=== PATIENT | female | born 1970 | race African-American/Black ===

== ENCOUNTER 2019-08-13 11:05 | Inpatient (IN) | payer OTHER ==
[~2019-08-13] VITALS: Ht 167.6 cm; Wt 134.8 kg
[2019-08-13] VITALS (34 sets, daily range): BP systolic 93–172; BP diastolic 60–101
--- NOTE | ~2019-08-13 | HC ---
[facility] [place] [address] CONSULTATION Name: JOSE MCMULLEN Room #: [facility] IN M.R.#: [id number] Admission: 08/13/19 Attend Phys: Breonna Mejia Discharge: Date of : 68 Report #: [id number] THIS REPORT FOR: cc: Mitch Fox Shyam MD Couchonnal, Guillermo J. MD ~ CC: Breonna Becerra DATE OF SERVICE: 08/14/2019 INFECTIOUS DISEASE CONSULTATION HISTORY OF PRESENT ILLNESS: A 49-year-old -[place] woman admitted with cellulitic changes of the left side and high fevers. The patient is treated with vancomycin and meropenem, and today she is improved. More cooperative. PAST MEDICAL HISTORY: Altered mental status. Abscess of the breast. Obesity. Pulmonary embolism. DVTs. Hypertension. Hyperlipidemia. CVA, left hemiparesis. Jennings's palsy years ago. SOCIAL HISTORY: See H and P, old records. REVIEW OF SYSTEMS: The patient is feeling cold. She was febrile; temperature is down with Tylenol. Denies having pain in the left thigh. The patient is hungry and ready for breakfast. PHYSICAL EXAMINATION: GENERAL: Well developed, not toxic looking -[place] woman. VITAL SIGNS: On admission, temperature of 104 degrees Fahrenheit; subsequently after Tylenol and antibiotics, 99.3; pulse 103, respirations 20, BP 139/71. Weight 131 kg, height 5 feet 6 inches. HEENMT: Conjunctival injection, redness in both eyes, left worse than right. Mouth, no thrush. NECK: Supple. LUNGS: Clear. HEART: S1, S2. ABDOMEN: Soft. No masses or megaly. EXTREMITIES: Redness on the medial aspect of the left thigh. PELVIC AND RECTAL: Deferred. NEUROLOGIC: Grossly within normal limits. LABORATORY DATA: O2 saturation normal at room air. Sodium 135, potassium 2.6, CO2 of 31, BUN 7, creatinine 0.8, glucose 292, magnesium 1.3, albumin 2.6 g/dL, protime 12.7, INR 1.2, fibrinogen 532, APTT 32.9. WBC 15,000, hemoglobin 14.[address] [address] CONSULTATION Name: JOSE MCMULLEN Room #: [facility] ADM IN M.R.#: [id number] Admission: 08/13/19 Attend Phys: Breonna Mejia Discharge: Date of : 68 Report #: [id number] g/dL, platelets 207,000. White blood cell count differential revealed 88% segmented neutrophils. Rapid influenza A and B test negative. Valproic acid level 10. Vancomycin level pending. Procalcitonin mildly elevated to 0.67. Urinalysis revealed 1+ protein, 2+ glucose, 1+ blood, many squamous epithelial cells, pyuria, microscopic hematuria, bacteriuria and Trichomonas. MICROBIOLOGY DATA: Blood and urine cultures pending at the time of this dictation. RADIOLOGY EVALUATION: Chest x-ray revealed central venous catheter in the superior vena cava. CT head without contrast revealed development of predominantly subcortical low attenuation within the ____ right frontoparietal region, representing area of ischemic infarction of undetermined age. CT scan of abdomen and pelvis, thickening of the subcutaneous tissue and inguinal region in left thigh. Enlarged lymph nodes, reactive in nature. Fatty infiltration of the liver. MEDICATIONS: The patient is on treatment with vancomycin 1.25 grams IV every 8 hours, meropenem 500 mg IV every 6 hours, insulin lispro per sliding scale. Pressor per protocol; they were already discontinued. ASSESSMENT: 1. Cellulitis, left thigh, possibly due to Streptococcus versus Staphylococcus. 2. Possible diabetes mellitus. 3. Obesity. 4. Electrolyte imbalance. SUGGESTIONS: Recommend continue coverage with vancomycin and meropenem. Streamline antibiotic regimen; the likely cause of these cellulitic changes is either Streptococcus versus Staphylococcus. Dr. Mejia, thank you for requesting my suggestions. By: [phone] Benson Victoria MD /nt
[~2019-08-13 11:05] MED LIST: ACETAMINOPHEN325 M1 PO; AMOXICILLIN 50500 M1 PO; BACTRIM DS TAB1 EACH PO; CELEXA 10 MG TA10 M1 PO; CIPROFLOXACIN500 M1 PO; COLACE 100 MG100 MG PO; CORTISPORIN OTI10 ML OTIC; DOXYCYCLINE 10100 MG PO; FIORICET 50-321 EACH PO; FLAGYL500 MG PO; GEODON PO; GEODON40 MG PO; GEODON80 MG PO; HYDROCODON-ACE1 EAC8 PO; HYDROXINE; HYDROXYZINE; IBUPROFEN 800800 M1 PO; KEFLEX500 MG PO; LOPRESSOR 50 MG50 M1 PO; MEDROL DOSPAK21 TAB PO; MEDROLDOSEPACK PO; NAPROSYN500 MG PO; NORCO 5-325 TA1 EACH PO; NORVASC; NORVASC 5 MG TAB5 MG PO; NORVASC10 MG PO; NYSTATIN 100,0015 G1 TP; PERCOCET 5-3251 EACH PO; PREVACID 30MG C30 M1 PG; PROTONIX40 M2 PO; REGLAN 10 MG TA10 MG PO; REGLAN 5 MG TAB5 M1 PO; SEROQUEL XR50 MG PO; TRAZODONE 150150 M1; TRIAMTERENE-HC1 EAC1 PO
[2019-08-13 12:08] LABS: URINE BILIRUBIN NEGATIVE (Negative); URINE BLOOD 1+ (Negative); URINE CLARITY CLEAR; URINE COLOR YELLOW; URINE GLUCOSE-RANDOM* 2+ (Negative); URINE KETONES NEGATIVE (Negative); URINE NITRITE-REFLEX NEGATIVE (Negative); URINE PROTEIN (DIPSTICK) 1+ (Negative); URINE SPECIFIC GRAVITY 1.015 (1.005-1.035); URINE UROBILINOGEN 0.2 E.U./dl (0.2-1.0)
[2019-08-13 12:13] LABS: URINE LEUKOCYTES-REFLEX 1+ (Negative)
[2019-08-13 12:16] LABS: SQUAMOUS >10 Many /LPF (0-3)
[2019-08-13 12:20] LABS: CASTS None Seen /LPF (None Seen); MUCUS 4-6 Moderate strn/LPF (None Seen); URINE RBC 3-10 Few /HPF (0-2)
[2019-08-13 12:21] LABS: CRYSTALS None Seen /LPF (None Seen)
[2019-08-13 12:45] LABS: ABSOLUTE NEUTROPHILS 14.8 thou/uL (1.4-8.2); BASOPHILS 0.3 % (0.0-2.0); HEMATOCRIT 43.2 % (37.0-47.0); HEMOGLOBIN 14.2 gm/dL (12.0-15.0); LYMPHOCYTES 10.2 % (24.0-44.0); MCH 29.7 pg (26.0-34.0); MCHC 32.8 g/dL (28.0-37.0); MCV 90.7 fL (80.0-100.0); MONOCYTES 4.1 % (1.0-8.0); PLATELET COUNT 237 thou/uL (150-400); POLYS 85.4 % (36.0-66.0); RBC 4.77 mil/uL (4.20-5.00); WBC 17.3 thou/uL (4.0-11.0)
[2019-08-13 13:00] LABS: ALBUMIN 2.6 g/dL (3.4-5.0); CALCIUM 9.3 mg/dL (8.5-10.1); TOTAL BILIRUBIN 0.7 mg/dL (<0.1-1.0); TOTAL PROTEIN 8.4 g/dL (6.4-8.2)
[2019-08-13 13:02] LABS: POTASSIUM 2.8 mmol/L (3.5-5.1)
[2019-08-13] MEDS ORDERED: TYLENOL325 M1 PO (13:45)
[2019-08-13] MEDS ORDERED: CHLORTHALIDONE25 MG PO (13:46)
[2019-08-13] MEDS ORDERED: LIPITOR40 MG PO (13:46)
[2019-08-13] MEDS ORDERED: CARVEDILOL25 MG PO (13:46)
[2019-08-13] MEDS ORDERED: DEPAKOTE 250MG250 M1 PO (13:46)
[2019-08-13] MEDS ORDERED: CLINDAGEL75 ML TOP (13:46)
[2019-08-13] MEDS ORDERED: NEURONTIN 400M400 M2 (13:47)
[2019-08-13] MEDS ORDERED: ELIQUIS5 MG PO (13:47)
--- NOTE | 2019-08-13 16:55 | NUR ---
3 HR SEPSIS UPDATE: NURSE TALKED WITH DR. GRAY AT [address] WARNER (FROM CONSULT) AT 1650. REPORT PT STATUS: PT COOPERATIVE, INTERMITENTLY ANSWERS QUESTIONS, IMPULSIVE MAP- 119 CVP- NO LINE LACTATE-2.4 @1230. AWAITING NEXT DRAW UO:>30ML/HOUR BMP: AWAITING MOST RECENT RESULTS, DIFFICULTY OBTAINING BLOOD WILL GET A LINE ONCE CONSENT IS OBTAINED. PATIENT ON ROOM AIR AT THIS TIME WITH, O2 SATURATION >93% WWILL CONTINUE TO MONITOR PATIENT STATUS.
[2019-08-13 17:04] LABS: CALCIUM 8.6 mg/dL (8.5-10.1); CREATININE 0.8 mg/dL (0.6-1.0); MAGNESIUM 1.3 mg/dL (1.8-2.4)
[2019-08-13 17:05] LABS: APTT 32.9 Seconds (24.5-32.8); INR 1.2; POTASSIUM 3.6 mmol/L (3.5-5.1); PROTIME 12.7 Seconds (9.3-11.4)
--- NOTE | 2019-08-13 17:23 | NUR ---
Received report from Nellie Gilbert RN and assumed care of patient.
--- NOTE | 2019-08-13 17:28 | NUR ---
PATIENT ARRIVED FROM ED AROUND 1450. PATIENT SETTLED INTO BED. BATH GIVEN POST BOWEL MOVEMENT. VITAL SIGNS OBTAINED. SHE IS IMPULSIVE AND PULLS AT LINES. DIFFICULT TO REDIRECT. SEPSIS PROTOCOL IN PLACE. LABS NOTED. ANOTHER RN TO ASSUME CARE OF PATIENT.
--- NOTE | 2019-08-13 17:47 | NUR ---
Attempted to call (contact number listed) to get consent for central line placement. Received a recording that call was screened and it was wrong number. Pt unable to give consent. Call placed to Dr Lerma's cell phone to get consent to do as medical necessity and call placed to Dr Mejia's pager for same reason. Left voicemail message on Dr Lerma's phone and entered return number on Dr Mejia's pager. Currently have two peripheral lines.
--- NOTE | 2019-08-13 19:19 | NUR ---
IV nurse here for placement of central line per medical necessity. Pt restless through the procedure. Tachycardic. Febrile.
--- NOTE | 2019-08-13 20:10 | NUR ---
VAT CONSULTED FOR A CL FOR THIS PT WITH HX OF CVA, DVT AND HAS SEPSIS. A TLCL PLACED IN RT IJ AND TIP AT THE CAJ AND RELEASED FOR USE PER PROTOCOL. PLEASE SEE INSERTION FOR DETAILS
[2019-08-13 21:14] LABS: CREATININE 0.8 mg/dL (0.6-1.0)
[2019-08-13 21:16] LABS: POTASSIUM 2.6 mmol/L (3.5-5.1)
--- NOTE | 2019-08-13 23:16 | NUR ---
ASSUMED PT CARE FROM DAY RN AT 1900. WAS INFORMED ALL CONSULTS WERE CALLED AT THIS TIME. PT JUST HAD A RIGHT SUBCLAVIAN PICC PLACED BY IV TEAM. X RAY CONFIRMED PLACEMENT AND INSULIN, NS, AND LOADING DOSE OF VANC GTT WAS RESTARTED. AT AROUND 2029, CVP LINE WAS PLACED. AROUND 2300, PT PULLED OUT PICC LINE MORE THAN HALF WAY OUT. AT THIS TIME, DRIPS WERE PAUSED. AND THE REST OF THE PICC LINE WAS PULLED OUT BY MARITA KHALIL WITH GAUZE AND TAPE TO DRESS THE SITE.
[2019-08-14] VITALS (47 sets, daily range): BP systolic 120–166; BP diastolic 44–102
--- NOTE | 2019-08-14 00:01 | NUR ---
AT 0 MORRIS CRAMER WAS ON UNIT AND WAS TOLD THAT PT. HAD PULLED OUT PICC LINE. SKIP PITMAN MENTIONED THAT DR. WARNER WAS IN HOUSE AND HE MIGHT BE ABLE TO PLACE CENTRAL LINE. DR. WARNER CAME TO UNIT AND WAS UNAWARE THAT PT. WAS EVEN CONSULTED UNDER HIM. HE WAS THEN GIVEN A PT. UPDATE. AFTER SOME REVIEW HE DECIDED TO NOT PLACE LINE AND SAID THAT IF SHE NEEDED ONE IN THE MORNING THEN HE WOULD PLACE ONE. MORRIS CRAMER CAME BACK ON UNIT TO PLACE IV WITH ULTRASOUND. WILL CONTINUE TO MONITOR.
[2019-08-14 05:47] LABS: ABSOLUTE NEUTROPHILS 13.3 thou/uL (1.4-8.2); BASOPHILS 0.5 % (0.0-2.0); HEMATOCRIT 43.6 % (37.0-47.0); HEMOGLOBIN 14.1 gm/dL (12.0-15.0); LYMPHOCYTES 7.2 % (24.0-44.0); MCH 29.6 pg (26.0-34.0); MCHC 32.4 g/dL (28.0-37.0); MCV 91.5 fL (80.0-100.0); MONOCYTES 3.4 % (1.0-8.0); PLATELET COUNT 207 thou/uL (150-400); POLYS 88.9 % (36.0-66.0); RBC 4.76 mil/uL (4.20-5.00); RDW 14.6 % (10.5-14.5)
[2019-08-14 05:56] LABS: CALCIUM 8.9 mg/dL (8.5-10.1); CREATININE 0.9 mg/dL (0.6-1.0)
[2019-08-14 06:11] LABS: POTASSIUM 2.7 mmol/L (3.5-5.1)
--- NOTE | 2019-08-14 06:50 | NUR ---
SHOAIB CACERES CALLED AT 0200 FOR NEW INSULIN ORDERS. PT. NEEDED NEW ORDERS BECAUSE INSULIN GTT WAS INCOMPATIBLE WITH THE ONLY LINE PT. HAD AT THE TIME. ORDERS WERE RECIEVED TO STOPP INSULIN GTT AND START SUBQ INSULIN Q4H AND REASSESS NEED FOR INSULIN GTT ONCE ANOTHER LINE CAN BE PLACED ON PT. WILL CONTINUE TO MONITOR.
--- NOTE | 2019-08-14 10:48 | NUR ---
Assumed care at 0700. Nurse and 2 shift stacker RNs provided pericare and full bed change due to fecal incontinence episode. Pt appeared alert and correctly stated the year but was not following commands. Nurse attempted to give her PO medication however PT spit the medications back out of her mouth. Pt appeared to gag and cough and vomited up the rest of the medications that were swallowed. Pt denied feelings of nausea after the episode. Nurse attempted to give medications via IV but the line had infiltrated and was dc'd by nurse. IV team was paged as PT had pulled out a PICC line and other peripherals. Nurse crushed the PT's depakote and mixed with applesauce. PT kept refusing to open her mouth. PT educated on medication and importance of it. PT took a few bites but then attempted to spit the medication back out again. Nurse cleaned the PT up and provided more education. High fall risk precautions are in place. Call light in reach. Nurse will continue to monitor.
--- NOTE | 2019-08-14 13:15 | EKG ---
[facility] [place] [address] ELECTROCARDIOGRAM REPORT Name: JOSE MCMULLEN Room #: 237-P ADM IN M.R.#: [id number] Admission: 08/13/19 Attend Phys: Breonna Mejia Discharge: Date of : 68 Report #: [id number] THIS REPORT FOR: cc: Mitch Fox Shyam MD Lundgren, Craig H. 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1970 Requested By: Arnol Trinh Order Number: [id number] MD: Ra Boykin Measurements Intervals [place] Rate: 106 P: 68 OH: 157 QRS: 56 QRSD: 89 T: 30 QT: 336 QTc: 447 Interpretive Statements Sinus tachycardia Probable anteroseptal infarct, old Repol abnrm suggests ischemia, diffuse leads Compared to ECG 12/27/2012 12:01:43 Myocardial infarct finding now present ST (T wave) deviation now present Electronically Signed On 08-14-2019 13:14:18 CDT by Ra Boykin [email or web address] <ELECTRONICALLY SIGNED> By: Ra Boykin MD, FAC 08/14/19 1314 1125 1125 Ra Boykin MD, [facility] /EPI
[2019-08-14 13:39] LABS: MAGNESIUM 1.7 mg/dL (1.8-2.4)
[2019-08-14 13:40] LABS: POTASSIUM 2.3 mmol/L (3.5-5.1)
--- NOTE | 2019-08-14 14:29 | NUR ---
Called report to Chanel RN on . She verbalized understanding. PT is aware of transfer but is unable to understand the meaning due to cognitive status. [facility] was made aware of PT's transfer orders. PT will leave unit via bed and RN escort. Nurse will continue to monitor.
--- NOTE | 2019-08-14 21:05 | NUR ---
report received from Mitch Billings RN. at 1445, pt received in ccu #202 per bed on tele pack monitor. continuing r wrist restraint- remains intact in an attempt to keep peripheral iv's intact. when family in room, pt is talkative and smiling. then when rn in room with or without family presence, pt is immediately quiet and has flat effect. minimally cooperative. iv kcl replacement in progress. antibiotic infusing for cellulitis, adequate urine output per ortiz. flexiseal with scant amount watery stool. incontinent of loose liquid stool with karri colored flecks of stool. cleansed, gown and total bed change performed during shift change. slowly progressing.
[2019-08-15] VITALS: BP 141/89
[2019-08-15 03:29] LABS: ABSOLUTE NEUTROPHILS 9.6 thou/uL (1.4-8.2); BASOPHILS 0.8 % (0.0-2.0); EOSINOPHILS 0.4 % (0.0-3.0); HEMATOCRIT 41.8 % (37.0-47.0); HEMOGLOBIN 13.5 gm/dL (12.0-15.0); LYMPHOCYTES 8.8 % (24.0-44.0); MCH 29.3 pg (26.0-34.0); MCHC 32.3 g/dL (28.0-37.0); MCV 90.8 fL (80.0-100.0); MONOCYTES 7.2 % (1.0-8.0); PLATELET COUNT 204 thou/uL (150-400); POLYS 82.8 % (36.0-66.0); RBC 4.61 mil/uL (4.20-5.00); WBC 11.7 thou/uL (4.0-11.0)
--- NOTE | 2019-08-15 03:48 | NUR ---
NO OVERNIGHT EVENTS. PT. CONTINUES TO BE CONFUSED INTERNITTENTLY. WITH THIS THERE IS STILL A NEED FOR HER TO BE RESTRAINED. PT. HAS BEEN UP MOST OF NIGHT AND HAS SLEPT FOR MAYBE TWO HOURS. ASSESSMENTS AND VITAL SIGNS CHARTED. PT. IS SLOWLY PROGRESSING TOWARDS GOALS. WILL CONTINUE TO MONITOR.
[2019-08-15 04:02] LABS: ALBUMIN 2.2 g/dL (3.4-5.0); CALCIUM 8.8 mg/dL (8.5-10.1); CREATININE 0.7 mg/dL (0.6-1.0)
[2019-08-15 04:08] LABS: POTASSIUM 2.8 mmol/L (3.5-5.1)
[2019-08-15 05:06] VITALS: BP 157/102
[2019-08-15 08:20] VITALS: BP 145/88
[2019-08-15 12:00] VITALS: BP 127/79
--- NOTE | 2019-08-15 12:44 | NUR ---
WOUND CARE CONSULT; ASSESSMENT OF THIS PATIENT WITH OBESITY. THE PATIENT HAS A FECAL AND URINARY MANGEMENT SYSTEMS IN PLACE. THE FECAL TUBE WAS LEAKING STOOL THAT ESCORIATED THE TISSUES. THERE IS A 3 X 3 X 0.1 WOUND TO THE LEFT INNER THIGH. THE WOUND IS CONTAMINATED BUT NO S/S OF INFECTION NOTED. A NEW FECAL MGMT DEVICE WAS INSERTED BY THE FINANCIAL INVESTIGATOR. RECOMMEDNATIONS; 1-INTERDRY TO ALL SKIN FOLDS OF THE BUTTOCKS, BREASTS AND PANNOUS/GROIN. 2-ZGUARD TO THE LEFT INNER THIGHT BID RN PRESENT
--- NOTE | 2019-08-15 14:59 | NUR ---
Met with patient and sp with spouse. Patient a ltc resident of [facility]. She admits with cellulitis rec IV antibiotics. Patient has [place] medicaid. SP with [facility] their face sheet notes only spouse but [facility] has aunt listed as emergency contact. Confirmed with patient and spouse aunt is a noted emergency contact as well. Updated facility. Plan return to [facility] once stable.
--- NOTE | 2019-08-15 17:10 | NUR ---
ASSUMED CARE @ 0700 08/15/19, PT ASSESSMENTS AND VSS COMPLETE PER CCU ORDERS. PT HAD DISCHARGE ORDERS SINCE THE AM, PER DR DELGADO. DIALYSIS PUSHED FARTHER DOWN THE DAY DUE TO AN EMERGENT DIALYSIS IN THE ICU PER DIALYSIS NURSE, DR DELGADO INFORMED ABOUT THIS AND THE POTENTIAL LATE DISCHARGE @ 1419. @ 1634 DIALYSIS STILL NOT STARTED, DIALYSIS NURSE PAGED AGAIN, PT STILL SCHEDULED FOR TODAY BUT CAR WORKER STILL IN THE ICU. DR DELGADO AND CASE MANAGEMENT INFORMED, DISCHARGE ORDER POSTPONED TO TOMMORROW. PT PROGRESSING TOWARDS POC
[2019-08-15 17:16] VITALS: BP 128/90
--- NOTE | 2019-08-15 17:31 | NUR ---
ASSUMED CARE AT 0700, COMMERCIAL DECORATOR AND VITAL SIGNS TAKEN PER CCU PROTOCOL. WOUND NURSE ROUNDED AND TREATED, GAVE RECOMMENDATIONS FOR FUTURE DRESSING CHANGES. RESTRAINTS REMOVED AT 1100 PT WAS CALM AND COOPERATIVE. POTASSIUM REPLACED THROUGHOUT THE DAY. DR. GRAY PAGED AND NOTIFIED OF PT NAUSEA, ORDERS RECEIVED AND EXECUTED.
--- NOTE | 2019-08-15 19:17 | NUR ---
AT 1855 CEFAZOLIN GIVEN PER ORDERS, @ 1900 PT STARTS TO SEIZE, SEIZURE LASTED FOR 2 MINS, CEFAZOLIN TURNED OFF. [place] STOCKER CALLED AND REPORT GIVEN, MEDICATION ADDED TO ALLERGY LIST, NO NEW ORDERS RECIEVED.
[2019-08-15 20:31] VITALS: BP 127/89
[2019-08-16 04:25] VITALS: BP 134/90
--- NOTE | 2019-08-16 04:32 | NUR ---
ASSUMED PT CARE AT 1900. AT THE BEGINNING OF SHIFT CHANGE BEFORE REPORT WAS OBTAINED, FAMILY HAD NOTIFIED THE DAY NURSE ABOUT PT'S STATUS. BOTH NIGHT AND DAY RN WENT IN THE ROOM AND IT WAS NOTICED THAT THE PATIENT WAS HAVING SEIZURE LIKE ACTIVITY WHICH LASTED FOR ABOUT 2 MINUTES. ACCORDING TO DAY NURSE, A NEW MEDICATION (CEFTAZOLIN) WAS JUST STARTED AND A FEW MINUTES LATER PT HAD A REACTION. AFTER THAT EPISODE, PT RETURNED TO BASELINE. SLUBBER RUNNER NOTIFIED AND INFECTIOUS DISEASE PHYSICIAN NOTIFIED. MEDICATION DISCONTINUED PER ID AND ANOTHER ORDERED. PT IS NOW ALERT AND ORIENTED. NO SIGN OF DISTRESS NOTED IN PT. ASSESSMENT COMPLETED AND DOCUMENTED, FECAL MANAGEMENT SYSTEM AND ALVAREZ CATH IN PLACE. VITAL SIGNS STABLE. Q2H TURNS. SCHEDULED MEDS ADMINISTERED TO PT. TOLERATED PO INTAKE. CONTINUE TO MONITOR PATIENT. PAIN MED ADMINISTERED REQUESTED. DENIES ANY FURTHER NEEDS AT THIS TIME.
[2019-08-16 07:48] LABS: MCH 29.4 pg (26.0-34.0); MCHC 32.6 g/dL (28.0-37.0); MCV 90.2 fL (80.0-100.0); RBC 5.11 mil/uL (4.20-5.00); RDW 14.6 % (10.5-14.5)
[2019-08-16 08:05] LABS: CALCIUM 9.2 mg/dL (8.5-10.1); CREATININE 0.9 mg/dL (0.6-1.0)
[2019-08-16 08:06] LABS: POTASSIUM 2.8 mmol/L (3.5-5.1)
[2019-08-16 08:16] VITALS: BP 194/106
[2019-08-16 09:35] VITALS: BP 108/81
[2019-08-16 11:39] VITALS: BP 110/69
[2019-08-16 16:04] VITALS: BP 110/70
--- NOTE | 2019-08-16 18:13 | NUR ---
PT CARE ASSUMED APPROX 0700. ASSESSMENTS CHARTED. DENIES SOA. REPORTS THAT HEADACHE RESOLVED WITH BP CORRECTION EARLIER THIS AM. DENIED PAIN SINCE. K+ REPLACED BUT REMAINED LOW SO ADDITIONAL REPLACEMENT GIVEN. TURNING Q2 HRS WHEN PT ALLOWS. WOUND CARE PER ORDERS. FECAL TUBE DISLODGED SO LEFT OUT AT THIS TIME PER PT REQUEST. MINIMAL OUTPUT THIS SHIFT. ALVAREZ PATENT. PT VERY ATTENTION SEEKING AND EMOTIONAL THIS SHIFT. COUNTRY PRINTER APPRENTICE HAS SPOKEN AT LENGHT WITH PT REGARDING CONCERNS. NO DISTRESS NOTED.
[2019-08-16 19:47] VITALS: BP 107/77
[2019-08-17 00:08] LABS: ESTIMATED AVERAGE GLUCOSE > 398 mg/dL (()); GLYCOHEMOGLOBIN (HGB A1C) > 15.5 % (4.8-5.6)
--- NOTE | 2019-08-17 05:59 | NUR ---
ASSUMED PT CARE AROUND 1900. PT IN BED AND REQUESTING ICE CREAMS ADVISED PT THAT HER BLOOD GLUCOSE NEEDS TO BE CHECKED PRIOR TO RECEIVING. PT WOUND CARE PROVIDED PER ORDERS. PT Q2 TURNS WHEN SHE WANTS TO. PT HAD NO C/O OF SOA OR N/V/D. PT C/O PAIN IN HEAD AND GIVEN PAIN MEDICATION PER AUG. VITALS ARE STABLE. PT IS VERY RESTLESS. WILL CONTINUE TO MONITOR PER PLAN OF CARES.
[2019-08-17 06:52] LABS: CALCIUM 8.8 mg/dL (8.5-10.1)
[2019-08-17 08:20] VITALS: BP 108/88
--- NOTE | 2019-08-17 11:23 | NUR ---
WOUND CARE F/U; THE AREAS TO THE LEFTINNER THIGH IS HEALED. ALL THE AREAS OF ESCORIATION HAVE HEALED. RECOMENDATION; CONTINUE POC. D/C FROM WOUND CARE. RECONSULT IF NEEDED DISCUSSED WITH RN
[2019-08-17 12:00] VITALS: BP 114/71
--- NOTE | 2019-08-17 12:55 | NUR ---
Assess due to high BMI 48=extreme class III obesity. Admit with left thigh cellulitis. Hx cva, DM. Pt sleeping upon visit and did not awaken. Chart reviewed, BG 191-343 and on metformin, ss insulin. Intake 25-75% yesterday. Not on carb restriction for diet order-will add, otherwise low nutrition risk.
--- NOTE | 2019-08-17 14:28 | NUR ---
ASSUMMED PT CARE AT APPROXIMATELY 0700. PT A&O X4. ASSESSMENT CHARTED. FALL PRECAUTIONS IN PLACE. PT DENIES HAVING CHEST PAIN. PT DENIES HAVING SOB. PT DENIES HAVING ACUTE PAIN. VITAL SIGN STABLE. BLOOD SUGARS STABLE. EDUCATED PT ABOUT POC. PT STATED UNDERSTANDING AND DENIED HAVING FURTHER QUESTIONS. BED BATH GIVEN. WOUND CARE GIVEN. PT STATED HER "HEAD FELT FULL." INFORMED DR. MCHUGH. DR. MCHUGH ORDERED NEW MED. MED IMPLEMENTED. PT TRANSFERING TO MED-SURG UNIT. REPORT GIVEN TO RN. RN STATED UNDERSTANDING AND DENIED HAVING FURTHER QUESTIONS. PT'S PERSONAL BELONGINGS SENT C PT. PT COMFORTABLE. PT DENIES HAVING CONCERNS.
[2019-08-17 15:26] VITALS: BP 105/60
[2019-08-17 20:00] VITALS: BP 106/77
--- NOTE | 2019-08-17 21:06 | NUR ---
Received patient from CCU this afternoon, transferred to bed safely. On room air. A+O3-4. Vital signs stable. 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 On carb controlled diet- tolerating well, no nausea, no vomiting and no abdominal pain noted. On blood sugar monitoring, taken and recorded accordingly- with sliding scale insulin prescribed. A/W PT evaluation. With generalized edema noted. With ortiz catheter in place- output measured and recorded accordingly. Able to have a bowel movement today- charted; using bedpan. With wound on her thigh- wound team aware; z guard applied on area, pt turned regularly. Visited by relative. Falls bundle in place. With SL at R UA and R shoulder- intact. Complained of headache, PRN pain meds given as prescribed. To continue monitoring patient. Pt with L sided weakness- assisted in ADLs.
--- NOTE | 2019-08-18 04:02 | NUR ---
PATIENT AOX2 CONFUSED AND FORGETFUL. PATIENT TURNED Q 2 HOURS. PATIENT HAS BLE CELLULITIS, ELEVATED BLE. PATIENT CALLS INAPROPRIATELY, PATIENT EDUCATED TO BE PATIENT D/T HELPING OTHER PATIENTS. PERICARE AND BARRIER CREAM APPLIED NEEDED.PATIENT IN BED ASLEEP AT THIS TIME BREATHING REGULAR AND UNLABOURED.
[2019-08-18 07:49] VITALS: BP 107/64
--- NOTE | 2019-08-18 12:05 | HC ---
[facility] [place] [address] CONSULTATION Name: JOSE MCMULLEN Room #: 460-[facility] IN M.R.#: [id number] Admission: 08/13/19 Attend Phys: Breonna Mejia Discharge: Date of : 68 Report #: [id number] THIS REPORT FOR: cc: Mitch Fox Shyam MD Al-Mubaslat, Ahmad MD ~ CC: Breonna Becerra DATE OF SERVICE: 08/18/2019 ENDOCRINE CONSULTATION NOTE CONSULTING PHYSICIAN: Dr. Pace. REASON FOR CONSULTATION: Type 2 diabetes mellitus, uncontrolled hyperglycemia. HISTORY OF PRESENT ILLNESS: This is a 49-year-old female patient whose medical background is significant for CVA, immobility and bedridden status, thromboembolic disease, and hypertension. The patient presented to our hospital with complaints of abdominal pain and altered mental status and was admitted for further care and monitoring. On presentation, the patient was found to have severe hyperglycemia, which established a new diagnosis of type 2 diabetes mellitus. When I questioned the patient about this diagnosis, it was quite clear that she was very upset about finding out that she is a diabetic and expressed a great deal of concern over this, especially that she noted a devastating family history of type 2 diabetes mellitus and a second-degree relative losing his lower extremities due to diabetes complications. The patient herself has never known that she had hyperglycemia and has had off and on issues with polyuria, thirst, fatigue and tiredness. REVIEW OF SYSTEMS: CONSTITUTIONAL: Fatigue, tiredness. No fever or chills or changes in body weight. HEENT: Negative for sore throat, sinus pain, ear drainage. PULMONARY: Occasional shortness of breath and cough, but not hemoptysis. CARDIAC: Occasional palpitations, chest discomfort, but not syncope. GASTROINTESTINAL: Occasional abdominal discomfort, nausea, but not vomiting. NEUROLOGY: Status post cerebrovascular accident. She is a quadriplegic, cannot ambulate, bed bound. No seizure activity or severe frequent headaches. PSYCHIATRIC: No delusions or hallucinations. UROLOGY: No dysuria or hematuria. Otherwise, review of systems noncontributory other than those mentioned in HPI. ALLERGIES: HYDROCODONE. [address] [address] CONSULTATION Name: JOSE MCMULLEN Room #: 460-[facility] IN M.R.#: [id number] Admission: 08/13/19 Attend Phys: Breonna Mejia Discharge: Date of : 68 Report #: [id number] PAST MEDICAL HISTORY: Noted for: 1. CVA status post left-sided hemiparesis. 2. Pulmonary embolism. 3. Deep venous thrombosis. 4. Hypertension. 5. Hyperlipidemia. 6. Neuropathy. ACTIVE MEDICATIONS: Include amlodipine 10 mg daily, acetaminophen 325 mg daily, atorvastatin 40 mg daily, carvedilol 25 mg b.i.d., chlorthalidone 25 mg daily, Depakote 250 mg b.i.d., Eliquis 5 mg b.i.d., gabapentin 400 mg capsule. PAST SURGICAL HISTORY: Cholecystectomy. FAMILY HISTORY: Noted for type 2 diabetes mellitus. SOCIAL HISTORY: The patient resides in a nursing care facility. She is an active smoker, but denies use of alcohol. PHYSICAL EXAMINATION: GENERAL: -[place] female patient lying in bed, seems comfortable, not in apparent distress. VITAL SIGNS: Blood pressure is 107/64 mmHg, heart rate is 82 beats per minute, respirations 16 per minute, temperature 36.6 degrees. CONSTITUTIONAL: She is lying in bed, appears comfortable, not in apparent pain or distress. HEENT: Anicteric sclerae. Intact extraocular motions. NECK: Supple, no JVD, carotid bruits or lymphadenopathy. I do not appreciate thyromegaly. CHEST: Moderate air entry, scattered rales and rhonchi. No wheeze or crackles. HEART: Regular rate and rhythm without murmurs or gallops. ABDOMEN: Obese, but soft, lax. No guarding. Active bowel sounds. EXTREMITIES: Lower extremity exam noted for trace edema. No skin breaks or ulcerations. NEUROLOGIC: Awake, alert and oriented to time, place and person. The remainder of her examination is noted for left-sided hemiparesis. PSYCHIATRIC: Seems upset about the diagnosis of type 2 diabetes mellitus, but otherwise interactive, and appropriate and able to answer my questions without difficulty. LABORATORY DATA: Blood glucose on arrival was 330 mg/dL and has consistently been over 200 mg/dL, but in the past 24 hours, has gone as low as 132 mg/dL. Otherwise, sodium 133, potassium 3.1, chloride 96, CO2 of 30, anion gap 7, BUN 13, creatinine 1.0, AST 14, total bilirubin 0.7, calcium 8.8, phosphorus 2.0, magnesium 1.8, alkaline phosphatase 59, ALT 14, total protein 8.4, albumin 2.2. [facility] [address] [place] [address] CONSULTATION Name: JOSE MCMULLEN Room #: 460-P ADM IN M.R.#: [id number] Admission: 08/13/19 Attend Phys: Gavinerika Nain Jackie Discharge: Date of : 68 Report #: [id number] EGFR 71. Lactic acid 1.1. Troponin negative. CRP 20.8. White blood count 10, hemoglobin 15, hematocrit 46, platelets 246, hemoglobin A1c is more than 15.5. ASSESSMENT AND PLAN: 1. Type 2 diabetes mellitus. While this is a new diagnosis for the patient, she without a doubt, has type 2 diabetes mellitus as based on her multiple documentations of hyperglycemia as well as her hemoglobin A1c in excess of 15.5 indicating prolonged severe hyperglycemia. The patient was counseled about the diagnosis of type 2 diabetes mellitus as well as the need to achieve and maintain adequate glycemic control so as to prevent diabetic complications. She was reassured that once adequate and sustained glycemic control is in place that such complications might be kept at a minimum. It is notable that the patient had a fairly impressive response to low dose Glucophage therapy, which was started only 2 days ago with her blood glucose values getting as low as 132. That said, I want to maximize this at 1000 mg twice a day, add linagliptin 5 mg daily and tone down her Humalog supplemental scale to low intensity to avoid hypoglycemia. Blood glucose monitoring will commence a.c. and at bedtime and further adjustments will be made accordingly. I believe the patient would benefit from a dietary service consult to advise her unhelpful dietary modifications in the light of this new diagnosis. 2. Hyperlipidemia. The patient has hyperlipidemia and is maintained on atorvastatin therapy. I will resume atorvastatin therapy at 20 mg daily. 3. Hypertension. The patient's level of blood pressure control is adequate on the current regimen, she is to continue with the same. 4. I have reviewed the patient's clinical care notes, laboratory data and other pertinent clinical information for more than 35 minutes. I appreciate this consultation by Dr. Pace. <ELECTRONICALLY SIGNED> By: Katrina Rodriguez MD 08/18/19 [id number] [id number] Katrina Rodriguez MD /nt
--- NOTE | 2019-08-18 13:01 | NUR ---
ASSUMED CARE OF PATIENT AT 0700. PT A&OX4, VSS, DENIES PAIN. PATIENT HAS LEFT-SIDED WEAKNESS, ALVAREZ INTACT. FAMILY AT BEDSIDE. STUDENT NURSE IN TO ASSIST WITH CARES. PT FROM ASSISTED LIVING. NO SIGNS OF DISTRESS. PATIENT WOUND ON LEFT INNER THIGH INTACT, NO REDNESS. REPORT GIVEN APPROX 1100 TO ONCOMING NURSE ON THIS PATIENT.
--- NOTE | 2019-08-18 13:57 | NUR ---
Nutrition: Received RD consult for new diagnosis of DM II. Pt here w/ L leg cellulitis and per latest wound care note, L inner thigh wound has showing all areas of excorciation as healed. Pt noted to be a LTC resident at [facility]. Noted to be a poor historian. Family at bedside. Spent 20-30 mins in introduction to nutrition for diabetes. Pt had great difficulty paying attention. Unsure of pt's mentation and full potential to understand the seriousness of her diabetes and high A1c > 15.5% per 08/15 labs. Family member in room has diabetes too. Explained what type 2 diabetes is, A1c goal, and how carbs impact BG levels. Discussed what foods have carbs and set goal at 30-40 g carbs per meal maximum to support lowering A1c. Unsure pt will change her eating habits on her own, but hopefully [facility] will be in charge of preparing all meals to limit CHO intake. On tradjenta, metformin and SSI with BGs of 132-158 mg/dl so far today. See RD education note for more details. Low risk otherwise as po intake unaffected, eating 70-100% of meals yesterday.
[2019-08-18] MEDS ORDERED: CLARITIN10 M2 PO (14:50)
[2019-08-18] MEDS ORDERED: ZOFRAN 4 MG ORAL4 MG DISSOLVE (14:50)
[2019-08-18] MEDS ORDERED: KEFLEX500 M1 PO (14:50)
[2019-08-18] MEDS ORDERED: NYAMYC15 GM TOP (14:50)
[2019-08-18] MEDS ORDERED: PANTOPRAZOLE SO40 M1 PO (14:50)
[2019-08-18] MEDS ORDERED: TRADJENTA5 MG PO (14:50)
[2019-08-18] MEDS ORDERED: ALDACTONE50 MG PO (14:50)
[2019-08-18] MEDS ORDERED: GLUCOPHAGE1000 MG PO (14:50)
[2019-08-18] MEDS ORDERED: PRINIVIL10 MG PO (14:52)
--- NOTE | 2019-08-18 14:57 | NUR ---
CARE TEAM INDICATED THAT PT MAY BE MEDCIALLY STABELE TO RETURN TO [facility] THIS DAY. AWAITING CLEARENCE FOR ID. CM NOTIFIED LIAISON OR PT'S POSSUBLE RETURN. CM TO FOLLOW INDICATED WITH DC PLANNING.
[2019-08-18] MEDS ORDERED: IMODIUM A-D2 MG PO (15:04)
[2019-08-18] MEDS ORDERED: MUPIROCIN1 GM NASAL (15:13)
[2019-08-18 16:02] VITALS: BP 99/64
--- NOTE | 2019-08-18 16:25 | NUR ---
DISCHARGE PENDING ORDERS ENTERED NURSE INDICATED WE WERE AWAITING A LAB DRAW. CHART COPY MADE. FINAL ORDERS WILL NEED TO BE FAXED TO . REPORT TO BE CALLED TO . SPOUSE WILL NEED TO BE NOTIFIED. CALL JAIRO AT TO ARRANGE TRANSPORT.
[2019-08-18 16:35] LABS: POTASSIUM 3.7 mmol/L (3.5-5.1)
[2019-08-18] MEDS ORDERED: K-DUR 20 MEQ T20 MEQ PO (16:59)
[2019-08-18] MEDS ORDERED: MAGNESIUM400 M1 PO (17:19)
--- NOTE | 2019-08-18 19:46 | NUR ---
pt is A&OX3, PT'S VS ARE STABLE , PT DENIES PAIN AND SOB, PT HAS NEW ORDER TO REPLACE IV MAGNESIUM SULFATE 2GM, RN RECEIVED ORDER TO DC PT TO SNF AT 2000PM, RN HAS GIVING REPORT TO NURSE.
--- NOTE | 2019-08-18 20:43 | NUR ---
pt's ALVAREZ CATHETER HAS REMOVED AT 1500PM, PT HAS VOID URINE 200ML AT 1700PM.
--- NOTE | 2019-08-18 21:30 | NUR ---
discharge pt discharged at 2100 via stretcher to rehab of . iv in right forearm discontinued. pt's belongings in 2 bags that were sent with pt. report to rehab of called by day MARITA [facility]. Pt's discharge instructions, prescriptions reviewed with pt and placed in discharge packet and local driver of transport to give to receiving facility.
== END 2019-08-18 21:00 | DRG 872 ==
LOC: ER 11:05 → EROBS 13:35 → ICU 14:50 → 2N 08-14 14:50 → 4W 08-17 14:38
PROVIDERS: Emergency Medicine; Hospitalist; ADMIT Hospitalist
PROC: 02HV33Z Insertion of Infusion Device into Superior Vena Cava, Percutaneous Approach (ICD-10-PCS; principal; 2019-08-13)
DX: A41.9 Sepsis, unspecified organism (principal); L03.116 Cellulitis of left lower limb; I10 Essential (primary) hypertension; F17.210 Nicotine dependence, cigarettes, uncomplicated; E11.40 Type 2 diabetes mellitus with diabetic neuropathy, unspecified; E66.01 Morbid (severe) obesity due to excess calories; E87.6 Hypokalemia; I69.354 Hemiplegia and hemiparesis following cerebral infarction affecting left non-dominant side; Z68.42 Body mass index [BMI] 45.0-49.9, adult; Z86.711 Personal history of pulmonary embolism; Z86.718 Personal history of other venous thrombosis and embolism; Z90.49 Acquired absence of other specified parts of digestive tract; Z88.6 Allergy status to analgesic agent
CPT/HCPCS: 10040; 10078; 10081; 10797

== ENCOUNTER 2019-09-24 11:17 | Inpatient (IN) | payer OTHER ==
[~2019-09-24] VITALS: Ht 167.6 cm; Wt 137.9 kg
--- NOTE | ~2019-09-24 | HC ---
[facility] [place] [address] CONSULTATION Name: JOSE MCMULLEN Room #: 217-[facility] IN M.R.#: [id number] Admission: 09/24/19 Attend Phys: Mello Serrano MD Discharge: Date of : 68 Report #: [id number] THIS REPORT FOR: cc: Mitch Fox Shyam MD Fried, John S. MD ~ CC: Mello Becerra DATE OF SERVICE: 09/25/2019 CONSULTATION: Infectious Disease. HISTORY OF PRESENT ILLNESS: The patient is a 49-year-old -Welsh female admitted from her snf unit because of fever and confusion. The patient had obvious case of left lower extremity cellulitis. She had been hospitalized 08/12-08/17 with a similar situation presented with fever, confusion and having a left lower extremity cellulitis. During that hospitalization, she had a new diagnosis of diabetes with hemoglobin A1c of 15. Culture was negative. The patient was treated and returned to her skilled nursing. She comes back now almost 5 weeks later with a similar presentation. There is concern about possible COVID-19 infection with fever from the facility. The patient states that she was tested about a week or 2 ago in a facility and was negative. Infectious Disease consultation was requested to assist with evaluation. PAST MEDICAL HISTORY: Significant for recent diagnosis of diabetes with hypertension. The patient has history of deep vein thrombosis and pulmonary embolus. She had a stroke about 9 months ago resulting in left hemiparesis, requiring long-term skilled nursing confinement. She has a history of cerebral aneurysms. There is a history of bipolar disease, morbid obesity with weight of 304 pounds. ALLERGIES: The chart notes allergy to KEFLEX, which causes seizures, which occurred in August. FAMILY HISTORY: Noncontributory. SOCIAL HISTORY: The patient is . She says that her visits from the skilled nursing and they are sexually active. She had a past history of tobacco use, but no alcohol use. The chart notes a history of cocaine use in the past. REVIEW OF SYSTEMS: The patient denies feeling very sick, although she is not terribly reliable. She is not aware of fevers, chills or sweats. She denies [facility] [address] [place] [address] CONSULTATION Name: JOSE MCMULLEN Room #: 217-[facility] IN M.R.#: [id number] Admission: 09/24/19 Attend Phys: Mello Serrano MD Discharge: Date of : 68 Report #: [id number] headache, sinus congestion, sore throat, trouble swallowing. The patient denies any pulmonary symptoms. She specifically denies cough, chest pain, dyspnea. No cardiac complaints. The patient denies nausea, vomiting, diarrhea, constipation. She denies any urinary complaints. She does note pain in her left leg, particularly when it is moved. She has a flaccid paralysis on the left side from her stroke. PHYSICAL EXAMINATION: VITAL SIGNS: The patient presented with a temperature of 103. After 24 hours of vancomycin, temperature was 99.7. SKIN: Shows obvious new and old changes of cellulitis on the left lower extremity. The foot is 2+ edematous. There is erythema on the foot with patchy erythema on the calf and inner thigh. She is tender in the inguinal area. There is some desquamation around the erythema from her previous cellulitis. The leg is flaccid, but has a lot of discomfort with passive motion. ENT: Negative. The patient is alert and conversant. NECK: Supple. HEART: Sounds S1, S2. LUNGS: Clear to anterior auscultation. ABDOMEN: Belly is obese, soft, not tender. EXTREMITIES: The muscular exam shows the flaccidity on the left side. LABORATORY DATA: Showed a white count initially was 27,000 and after 24 hours down to 17.6; hemoglobin is 11.7; hematocrit 35.9; platelets are 288,000. Sedimentation rate is elevated at 90. Electrolytes are normal. BUN 17, creatinine 1.2. LFTs are normal. Highly sensitive CRP is elevated at 499. A chest x-ray is clear without any infiltrates. A Doppler of the leg shows chronic clot in the femoral vein with the common femoral and popliteal veins being open. Urinalysis was positive including Trichomonas. Urine cultures are pending. ASSESSMENT AND PLAN: In summary, we have a patient with fever and confusion with obvious cellulitis of the left leg with leukocytosis. She seems improved very quickly with vancomycin with reduction of fever and white count. She is not complaining of any pulmonary symptoms, has a negative chest x-ray and a report of a negative COVID-19 test in the last week or 2 from her facility. At this time, I would like to continue the patient on vancomycin. She received Flagyl for the Trichomonas. She was started on Bactrim because of the pyuria. She really is asymptomatic, so I do not think this need to be treated. I do not think the urinary tract infection is a cause of her fever and leukocytosis. The leg may benefit from elevation. When the pain is less, the compression garment may be helpful as well. I do not have very high suspicion that this is a pulmonary infection from COVID-19 or any other pathogen. I have taken the liberty of discussing with Dr. Pace to discontinue the COVID-19 PCR test and discontinue COVID-19 isolation. [facility] [address] [place] [address] CONSULTATION Name: BENEDICTJOSE Room #: 217-P ADM IN M.R.#: [id number] Admission: 09/24/19 Attend Phys: Mello Serrano MD Discharge: Date of : 68 Report #: [id number] I appreciate the opportunity of input in the care of the patient. Dr. Collado will return tomorrow for additional followup. By: [id number] Nic Ulrich MD /nt
[~2019-09-24 11:17] MED LIST changes: +ALDACTONE50 MG PO; +CARVEDILOL25 MG PO; +CHLORTHALIDONE25 MG PO; +CLARITIN10 M2 PO; +CLINDAGEL75 ML TOP; +DEPAKOTE 250MG250 M1 PO; +ELIQUIS5 MG PO; +GLUCOPHAGE1000 MG PO; +IMODIUM A-D2 MG PO; +K-DUR 20 MEQ T20 MEQ PO; +KEFLEX500 M1 PO; +LIPITOR40 MG PO; +MAGNESIUM400 M1 PO; +MUPIROCIN1 GM NASAL; +NEURONTIN 400M400 M2; +NYAMYC15 GM TOP; +PANTOPRAZOLE SO40 M1 PO; +PRINIVIL10 MG PO; +TRADJENTA5 MG PO; +TYLENOL325 M1 PO; +ZOFRAN 4 MG ORAL4 MG DISSOLVE
[2019-09-24 11:18] VITALS: BP 124/66
[2019-09-24 12:00] LABS: HEMATOCRIT 35.9 % (37.0-47.0); HEMOGLOBIN 11.7 gm/dL (12.0-15.0); MCH 29.6 pg (26.0-34.0); MCHC 32.5 g/dL (28.0-37.0); MCV 90.9 fL (80.0-100.0); PLATELET COUNT 288 thou/uL (150-400); RBC 3.96 mil/uL (4.20-5.00); WBC 27.4 thou/uL (4.0-11.0)
[2019-09-24 12:09] LABS: CALCIUM 9.1 mg/dL (8.5-10.1); CREATININE 1.2 mg/dL (0.6-1.0); POTASSIUM 4.2 mmol/L (3.5-5.1)
[2019-09-24 12:40] LABS: ABSOLUTE NEUTROPHILS 23.6 thou/uL (1.4-8.2)
[2019-09-24 13:23] VITALS: BP 124/66
[2019-09-24 13:46] VITALS: BP 121/86
[2019-09-24 14:30] VITALS: BP 150/102
[2019-09-24 14:30] LABS: ALBUMIN 2.6 g/dL (3.4-5.0); DIRECT BILIRUBIN 0.2 mg/dL (<0.1-0.2); TOTAL BILIRUBIN 0.7 mg/dL (<0.1-1.0)
[2019-09-24 15:54] LABS: URINE BILIRUBIN NEGATIVE (Negative); URINE BLOOD 1+ (Negative); URINE CLARITY SL CLOUDY; URINE COLOR YELLOW; URINE GLUCOSE-RANDOM* NEGATIVE (Negative); URINE KETONES NEGATIVE (Negative); URINE NITRITE-REFLEX NEGATIVE (Negative); URINE PROTEIN (DIPSTICK) 2+ (Negative)
[2019-09-24 15:57] LABS: URINE LEUKOCYTES-REFLEX 3+ (Negative)
[2019-09-24 16:00] VITALS: BP 112/74
[2019-09-24 16:04] LABS: SQUAMOUS >10 Many /LPF (0-3)
[2019-09-24 16:05] LABS: BACTERIA-REFLEX >30 Many /HPF (None Seen); URINE WBC-REFLEX >25 Many /HPF (0-5)
[2019-09-24 16:06] LABS: CRYSTALS None Seen /LPF (None Seen); URINE RBC 3-10 Few /HPF (0-2)
[2019-09-24 16:07] LABS: CASTS None Seen /LPF (None Seen)
[2019-09-24] MEDS ORDERED: CULTURELLE KID1 EAC1 PO (18:05)
[2019-09-24] MEDS ORDERED: DORYX MPC120 MG PO (18:06)
[2019-09-24] MEDS ORDERED: BENADRYL25 MG PO (18:07)
[2019-09-24] MEDS ORDERED: KRISTALOSE20 GM PO (18:08)
[2019-09-24] MEDS ORDERED: LANTUS SUBQ (18:08)
[2019-09-24] MEDS ORDERED: LIPITOR 40 MG T40 M1 PO (18:09)
[2019-09-24] MEDS ORDERED: HYDRALAZINE 10M10 MG PO (18:09)
--- NOTE | 2019-09-24 19:42 | NUR ---
VSS-FEBRILE @ 99.2. C/O SEVERE LEFT LEG PAIN THAT IS PARTIALLY RELIEVED WITH IV AND PO PAIN MEDICATIONS. LEFT LEG SWOLLEN, SKIN IS TIGHT, AND PEDAL EDEMA IS 4+ AND NON PITTING. ELEVATED LLE TO EASE SWELLING. LEFT SIDED FLACCIDITY. GOOD APPETITE WITH NO REPORTED N/V. [facility] AND RECONCILED HOME MEDICATION LIST, IS READY FOR PHYSICIAN TO REVIEW. TURNED EVERY TWO HOURS FOR COMFORT. FALL PRECAUTIONS IN PLACE.
[2019-09-24 20:30] VITALS: BP 112/73
--- NOTE | 2019-09-25 05:03 | NUR ---
PATIENT ASSESSED AND IS ALERT X 4. SKIN WARM AND DRY. LUNGS DISM TO CLEAR. RESP EVEN AND UNLABORED. TELE- SHOWS ST. DENIES ANY PAIN AT ASSESSMENT TIME. HAS 3+EDEMA IN RIGHT LEG AND LEFT LEG IS ABOUT 4+ EDEMA NON-PITTING. LEFT LEG TENDER AND PAIN WHEN U MOVE IT. FEMALE EXTERNAL CATH PLACED BECAUSE SHE IS INCONT. BM WAS YESTERDAY. REMAINS ON BEDREST. ABLE TO EAT AND DRINK PER SELF. UNABLE TO STAND THOUGH. PT COMPLAINED OF HEADACHE AT 0230. PAIN MED GIVEN WITH GOOD RESULTS. +NO OTHER SKIN ISSUES. LEFT LEG IS WARM TO TOUCH AND VERY REDDISH IN COLOR. TURNED Q 2 HOURS. BUT REFUSED AT THROUGH THE NIGHT AND 4AM. CONT PLAN OF CARE.HAS LEFT SIDE FLACCID FROM STROKE. WATCHING TV AT 0500. DENIES ANY NEEDS.
[2019-09-25 05:43] VITALS: BP 112/72
--- NOTE | 2019-09-25 06:52 | NUR ---
Patient has a open round area under her right armpit. bleeding at times. will have dr look at this.
[2019-09-25 07:47] VITALS: BP 96/55
[2019-09-25 08:42] LABS: ABSOLUTE NEUTROPHILS 14.9 thou/uL (1.4-8.2); BASOPHILS 0.3 % (0.0-2.0); EOSINOPHILS 1.6 % (0.0-3.0); HEMATOCRIT 33.8 % (37.0-47.0); HEMOGLOBIN 11.1 gm/dL (12.0-15.0); LYMPHOCYTES 10.6 % (24.0-44.0); MCH 29.8 pg (26.0-34.0); MCHC 32.8 g/dL (28.0-37.0); MCV 90.9 fL (80.0-100.0); MONOCYTES 2.6 % (1.0-8.0); PLATELET COUNT 239 thou/uL (150-400); POLYS 84.9 % (36.0-66.0); RBC 3.72 mil/uL (4.20-5.00); RDW 15.7 % (10.5-14.5); WBC 17.6 thou/uL (4.0-11.0)
[2019-09-25 08:57] LABS: ALBUMIN 2.4 g/dL (3.4-5.0); CALCIUM 8.6 mg/dL (8.5-10.1); CREATININE 0.9 mg/dL (0.6-1.0); POTASSIUM 3.9 mmol/L (3.5-5.1); TOTAL BILIRUBIN 0.6 mg/dL (<0.1-1.0); TOTAL PROTEIN 7.6 g/dL (6.4-8.2)
[2019-09-25 10:14] LABS: LARGE PLATELETS FEW
[2019-09-25 12:30] VITALS: BP 142/94
--- NOTE | 2019-09-25 19:55 | NUR ---
RECEIVED PT'S CARE AROUND 0720; PT. ALERT; DURING AM ASSESSMENT PT. AOX4; FORGETFUL; NO C/O PAIN; AM MEDICATION GIVEN; C/O OVER LLE WITH TACTILE STIMULATION; NO PAIN AT REST; EDUCATED ABOUT THE IMPORTANCE OF TURNING FROM SIDE TO SIDE; ST. UNDERSTANDING; REFUSED IT IN THE MORNING; RECEIVED CALLED FROM DR. RDZ AROUND 1500 TO TEST PT. FOR COVID 19; NOTIFIED ABOUT THE NEED TO MOVE TO 3W; ST. UNDERSTANDING; CHARGE NURSE & MUSIC COMPOSER NOTIFIED; PT. NOTIFIED; PT. ST. HAVING A COVID TEST OVER A REHAB; RESULTS WERE "NEGATIVE"; PHYSICIAN NOTIFIED; DR. RDZ REQUESTED INFORMATION ABOUT TEST; WHILE CONTACTING REHAB DR. WEATHERS ROUNDING; CANCEL COVID [address] TEST; DR. RDZ NOTIFIED & CALLED TRANSFER TO DR. WEATHERS; CHARGE NURSE & MUSIC COMPOSER NOTIFIED; PT. NOTIFIED; ASSESSMENT CHARGED; FOLLOWING POC; PASSED ON REPORT;
[2019-09-25 20:03] VITALS: BP 125/74
[2019-09-26 04:57] VITALS: BP 143/97
[2019-09-26 05:55] LABS: ABSOLUTE NEUTROPHILS 10.5 thou/uL (1.4-8.2); BASOPHILS 0.2 % (0.0-2.0); EOSINOPHILS 2.4 % (0.0-3.0); HEMATOCRIT 31.2 % (37.0-47.0); HEMOGLOBIN 10.1 gm/dL (12.0-15.0); LYMPHOCYTES 13.9 % (24.0-44.0); MCH 29.3 pg (26.0-34.0); MCHC 32.5 g/dL (28.0-37.0); MONOCYTES 5.2 % (1.0-8.0); PLATELET COUNT 238 thou/uL (150-400); POLYS 78.3 % (36.0-66.0); RBC 3.46 mil/uL (4.20-5.00); RDW 15.8 % (10.5-14.5); WBC 13.4 thou/uL (4.0-11.0)
--- NOTE | 2019-09-26 06:13 | NUR ---
PATIENTS CARES WERE ASSUMED AT SHIFT CHANGE. PATIENT WAS ASSESED AND MEDS WERE PASSED. PATIENT VITALS WERE STABLEDURING THIS CONCRETE PUMP OPERATOR. PATIENT REMAINS AFEBRILE. PATIENTS ACCUE CHACK WAS 103 AT BED TIME PATIENT ASKED FOR A SNACK. SHE WAS GIVEN FOUR PACKS OF CRACKERS AND TWO CONTAINERS OF PEANUT BUTTER. THIS PATIENT HAD ONE EXTRA LARGE STOOL THIS SHIFT. AT APPROX 0500 PATIENT REQUESTED ANOTHER ACCU CHECK. THIS WAS DONE AND SHE WAS 140. THE PATIENT HAD INTERMITTENT COMPLAINTS ABOUT LEG CRAMPS. NURSING WILL PAS THIS TO THE DAY SHIFT FOR THE ROUNDING DOCTOR TO ADDRESS THIS. ROUNDS HOURLY WERE DONE. THE BED IS IN A LOW AND LOCKED POSITION
[2019-09-26 08:00] VITALS: BP 127/78
[2019-09-26 11:09] VITALS: BP 145/86
--- NOTE | 2019-09-26 11:13 | NUR ---
PT CARE ASSUMED AT SHIFT CHANGE. PT ASSESSMENT CHARTED. PT MEDICATION CHARTED. PT TRANSFERRED TO 440, OXYCODONE ADMINISTERED PRIOR TO TRANSFER DUE TO LLE PAIN. NEXT DOSE OF VANCO TRANSFERRED WITH PT. PT TRANSFERRED IN AIR BED. PT COMPLAINS OF LEG CRAMPS.
--- NOTE | 2019-09-26 11:41 | NUR ---
Patient admits with cellulitis/dvt. She is ltc resident of [facility]. She has spouse and aunt who are supportive. Attempted to call patient no answer. Plan return [facility] [place].
--- NOTE | 2019-09-26 16:41 | NUR ---
FAXED CLINICAL UPDATE SPOKE WITH ROLF IN ADM SHE RECEIVED UPDATE. DP TO FOLLOW.
[2019-09-26 19:36] VITALS: BP 130/70
--- NOTE | 2019-09-27 03:29 | NUR ---
PT IS ALERT AND ORIENTED. GETS ANXIOUS AND TEARFUL AT TIMES. EATING OKAY. C/O LLE PAIN FROM THE CELLULITIS.AFEBRILE. CONTINUES ON IV ABTS.CLARENCE MATTRESS.USING FEMALE EXTERNAL CATHETER. NEEDS HELP WITH PERICARE.CALLS APPROPRAITELY.
[2019-09-27 04:51] VITALS: BP 140/84
[2019-09-27 05:31] LABS: HEMATOCRIT 31.9 % (37.0-47.0); HEMOGLOBIN 10.5 gm/dL (12.0-15.0); MCH 29.8 pg (26.0-34.0); MCHC 32.9 g/dL (28.0-37.0); MCV 90.5 fL (80.0-100.0); RBC 3.52 mil/uL (4.20-5.00); RDW 15.8 % (10.5-14.5); WBC 9.2 thou/uL (4.0-11.0)
--- NOTE | 2019-09-27 07:24 | HC ---
[facility] [place] [address] CONSULTATION Name: JOSE MCMULLEN Room #: 440-P ADM IN M.R.#: [id number] Admission: 09/24/19 Attend Phys: Mello Serrano MD Discharge: Date of : 68 Report #: [id number] THIS REPORT FOR: cc: Mitch Fox Shyam MD McKittrick, Richard James MD ~ CC: Arnol Cervantes REQUESTING PHYSICIAN: Mello Serrano MD REASON FOR CONSULTATION: History of left DVT. This appears to be chronic. HISTORY OF PRESENT ILLNESS: The patient is a 49-year-old female who, because of a right-sided stroke and left hemiparesis, has [place] in [place] for about a year. She also has a history, per her, of a DVT occurring with the of her daughter in 1988 and with the of her son in 1990. She is a poor historian, sounds like she may have had a stroke last year, went to [facility], maybe secondary to cocaine. Also, a history reportedly of a PE at a time in the past, unclear. Also, we do have an ultrasound at [place] on 04/23/2010 showing superficial thrombus in the greater saphenous vein. She had a recent ultrasound of the left leg on 09/24/2019 that showed a left femoral vein occlusion that was thought to be a chronic DVT. The popliteal was patent. The patient had been here in the hospital back in August for left leg cellulitis, last several days before this admission, on the , had recurrence of those same symptoms. She was also febrile when she came in here today. She reports that she may have been on hormones in the distant past after her hysterectomy, but none recently. She gets her medicines from the nursing staff in the nursing facility and thinks she has been receiving her Eliquis. PAST MEDICAL HISTORY: Notable for the DVTs in 1988 and 1990 and perhaps other dates that the patient is not aware of. Also, perhaps a history of pulmonary emboli, though records are not clear. We will try to get records from [facility]. The patient also does not know if she has had a hypercoag panel. Also, has hypertension, diabetes type 2 with a hemoglobin A1c of 15 back in August. Also, history of the right CVA with left hemiparesis in summer at [facility], history of morbid obesity and there is also some question in the chart about thoracic and cerebral aneurysms. Also, there is a question of cholecystectomy, hyperlipidemia. There was one mention of bipolar disorder, but I am not sure if that is correct. LABORATORY TESTS: Here are notable for a BUN of ____ and a creatinine of 0.9. [address] [address] CONSULTATION Name: JOSE MCMULLEN Room #: 440-P ADM IN M.R.#: [id number] Admission: 09/24/19 Attend Phys: Mello Serrano MD Discharge: Date of : 68 Report #: [id number] Transaminases normal. Magnesium was 1.0 while back. Albumin 2.4. Coags were normal in August. White count 13.4 down from 27.4, hemoglobin 10.1 with an MCV of 90.0, RDW 15.8, platelets 238. Differential has a few extra neutrophils, no acute changes. Sed rate of 90. Influenza A and B in 08/2019 were negative. UA was notable for 2+ protein, 1+ blood. FAMILY HISTORY: The patient is not aware of any family history of blood clots, strokes, or pulmonary emboli in first or second-degree relatives. Her children are healthy per her. She does have a /SO. SOCIAL HISTORY: Also notable for past tobacco use, past cocaine use. The patient is currently disabled because of stroke. CURRENT MEDICATIONS: At this time include vancomycin 1250 mg q.8 hours IV, lisinopril 10 mg daily, loratadine 10 mg daily, gabapentin 300 mg daily, atorvastatin calcium 40 mg daily, vitamin C 1000 mg daily, pantoprazole 40 mg daily, insulin at various doses, apixaban 5 mg b.i.d., divalproex 250 b.i.d., hydralazine p.r.n., morphine p.r.n., Percocet p.r.n. PHYSICAL EXAMINATION: GENERAL: The patient appears her stated age. She is lying in a hospital bed on a Med/Surg unit. VITAL SIGNS: Height is 5 feet 6, 167.6 cm. Weight is 304 pounds or 137.9 kilograms. Blood pressure is 143/97, O2 sat on room air 96%, respirations 20, pulse 93, had been tachycardic earlier in admit, temperature 98.7. Temperature had been 103 several days ago. MOOD: The patient is alert and pleasant, cheers up a little bit when she talked about the cocaine and the stroke a year ago. She does have very minimal to no left-sided movement. HEENT: Oropharynx clear. LUNGS: Clear, without rhonchi or rales, is symmetric and unlabored. LYMPHATICS: No enlarged lymph nodes in the supraclavicular, cervical, axillary or inguinal region. ABDOMEN: Extremely obese. No definite organomegaly, but it would be very difficult to tell. Left lower leg has swelling and some dark redness consistent with known cellulitis. DISCUSSION: Discussed with the patient that the color ultrasound shows more of a chronic clots. I do not not think she has truly failed Eliquis. Given that we do not know the history, I would continue Eliquis instead of taking on warfarin with all the management issues. We will try to get records from [facility] from the last 5 years with regards to the dictated notes, ultrasounds of the legs and also hypercoag workup. ASSESSMENT AND PLAN: 1. Chronic-appearing deep venous thrombosis without new symptoms. I do not [address] [address] CONSULTATION Name: JOSE MCMULLEN Room #: 440-P ADM IN M.R.#: [id number] Admission: 09/24/19 Attend Phys: Mello Serrano MD Discharge: Date of : 68 Report #: [id number] feel a strong need to change from Eliquis at this time as we do not note that the patient has failed this medication with progression for clot on this medication. We will try to get records, as mentioned above, from [facility]. I have already looked in the [employer] system and not see any records regarding this, but I may take a look again. 2. Cellulitis. Continuous antibiotics. 3. Diabetes. Continuous dietary and medication management. 4. Hypertension. Meds per others. 5. Morbid obesity. Encouraged calorie restriction. 6. Hemiparesis. Defer to nurses and other therapists treatment of this. We will follow with you. <ELECTRONICALLY SIGNED> By: Dk Mota MD 09/27/19 0724 [id number] Dk Mota MD /nt
[2019-09-27 07:39] VITALS: BP 120/70
--- NOTE | 2019-09-27 08:19 | NUR ---
High BMI 49.1. Hx CVA, DM, HTN. Admit from correction with left leg cellulitis. Was dx DM last month, A1C 15.5. Now BG very well controlled. Appetite is fair to good 50-80%. No new wt changes. Received introduction to diabetic diet last admit. Low nutrition risk
--- NOTE | 2019-09-27 15:28 | NUR ---
ASSUMED CARE OF THE PT AT 0700. PT IS INCONTINENT. BS CONTROLLED BY INSULIN, SEE EMAR. PLACED EXTERNAL CATHETER TO HELP PT VOID. APPLIED LOTION TO PTS LEGS PER PT REQUEST. PT REFUSED Q2 TURNS IN THE AM. R AC IV DRY AND INTACT. NO C/O PAIN. FALL PRECAUTIONS IN PLACE, BED IN THE LOWEST POSITION AND CALL LIGHT IS WITHIN REACH. WILL CONTINUE TO MONITOR THE PT
--- NOTE | 2019-09-27 15:54 | NUR ---
CARE TEAM INDICATED ANTICIPATED DC BACK TO [facility] TOMORROW. LIAISON UPDATED. CM TO FOLLOW INDICATED WITH DC PLANNING.
[2019-09-27 16:52] VITALS: BP 110/74
[2019-09-27 19:45] VITALS: BP 146/86
[2019-09-28 03:20] VITALS: BP 142/92
[2019-09-28 07:37] VITALS: BP 158/106
[2019-09-28] MEDS ORDERED: DORYX MPC120 MG PO (08:12)
--- NOTE | 2019-09-28 09:48 | NUR ---
RECIEVED CARE OF THIS PATIENT AT 1900. PATIENT ALERT AND ORIENTED AND VERY DEMANDING. WANTS THINGS NOW. C/O PAIN, WHEN TOLD IT WOULD BE AWHILE FOR PAIN DUE SHE WANTED TYLENOL. HAD NO TYLENOL ORDERED. CALLED [facility] AND RECEIVED AN ORDER FOR TYLENOL. WHEN COULD TO INTO PATIENT AND PATIENT SAID SHE JUST WANTED TO WAIT UNTIL HER PAIN MED WAS DUE. PATIENT IS INCONT AND HAS SOME BREAKDOWN ON HER BOTTOM. BARRIER CREAM APPLIED. LEFT SIDE OF PATIENT VERY WEAK. PATIENT SLEPT LITTLE.
[2019-09-28] MEDS ORDERED: ZYVOX600 MG PO (14:49)
[2019-09-28] MEDS ORDERED: LINEZOLID600 MG PO (14:50)
--- NOTE | 2019-09-28 15:12 | NUR ---
CARE TEAM INDICATED THAT PT IS MEDICALLY STABLE TO DISCHARGE TO [facility] THIS DAY. PT AND SPOUSE ARE AWARE AND AGREEABLE. CHART COPY ORDERED. ORDERS FAXED. [facility]SP[facility] ARRANGED FOR [phone]. REPORT TO BE CALLED TO . NO OTHER CM INTERVENTION INDICATED. CASE CLOSED.
--- NOTE | 2019-09-28 15:32 | NUR ---
PT DISCHARGING TODAY TO [facility] FAXED DC ORDERS/SUMMARY TO FACILITY SPOKE WITH ROLF IN ADM SHE RECEIVED ORDERS AND ARRANGED TRANSPORT BY [facility] ([facility]) FOR [phone]. PT WILL NOTIFY FAMILY. UNIT NOTIFIED AND CHART COPY PER US. RN TO CALL REPORT TO [phone].
[2019-09-28 15:42] VITALS: BP 144/73
--- NOTE | 2019-09-28 17:04 | NUR ---
VSS-AFEBRILE. LUNGS CLEAR IN ALL JEWELL BILATERALLY. DISCUSSED DISCHARGE PLAN WITH PATIENT, SHE VEERBALIZED UNDERSTANDING. BATH GIVEN. IV REMOVED. TRANSPORTATION SERVICE WITH CART PRESENT FOR TRANSFER. LEFT UNIT WITH TRANSPORTATION STAFF AND ALL PERSONAL BELONGINGS.
== END 2019-09-28 16:30 | disposition short-term general hospital (02) | DRG 871 ==
LOC: ER 11:17 → 2N 13:56 → EROBS 13:56 → 2N 14:18 → 4S 09-26 11:34
PROVIDERS: Emergency Medicine; Hospitalist; Internal Medicine; Internal Medicine Infectious Disease; ADMIT Internal Medicine
DX: A41.9 Sepsis, unspecified organism (principal); N17.0 Acute kidney failure with tubular necrosis; L03.116 Cellulitis of left lower limb; N39.0 Urinary tract infection, site not specified; I82.512 Chronic embolism and thrombosis of left femoral vein; I69.354 Hemiplegia and hemiparesis following cerebral infarction affecting left non-dominant side; Z68.42 Body mass index [BMI] 45.0-49.9, adult; I10 Essential (primary) hypertension; E78.5 Hyperlipidemia, unspecified; G47.00 Insomnia, unspecified; F31.9 Bipolar disorder, unspecified; Z20.828 Contact with and (suspected) exposure to other viral communicable diseases; E66.01 Morbid (severe) obesity due to excess calories; E11.40 Type 2 diabetes mellitus with diabetic neuropathy, unspecified; Z87.891 Personal history of nicotine dependence; A59.01 Trichomonal vulvovaginitis; Z82.49 Family history of ischemic heart disease and other diseases of the circulatory system; Z88.6 Allergy status to analgesic agent; Z86.711 Personal history of pulmonary embolism; Z90.49 Acquired absence of other specified parts of digestive tract; Z88.8 Allergy status to other drugs, medicaments and biological substances
CPT/HCPCS: 10081; 10102

== ENCOUNTER 2019-12-17 10:19 | Emergency (ER) | payer OTHER ==
[~2019-12-17] VITALS: Ht 167.6 cm; Wt 126.5 kg
--- NOTE | ~2019-12-17 | EMS ---
[facility] [address] [place] [address] EMS Patient Care Report Name: JOSE MCMULLEN Room #: REG DEEPTHI Carpio#: [id number] Admission: 12/17/19 Attend Phys: Discharge: Date of : 68 Report #: [id number] THIS REPORT FOR: //name// Report Transmitted: 12/17/2019 12:00 EMS Care Summary [place], [place]/[facility] Incident [id number] @ 12/17/2019 09:35 Incident Location [address] Patient JOSE PFEIFFER Female, 49 Years 1970 Patient Address [id number] [place], [place] [id number] Patient History Hypertension (HTN),Stroke/CVA,Hyperlipidemia,Neurological Condition - Other,Abdominal Aortic Aneurysm,Neuropathy, Patient Allergies No known allergies, Patient Medications Atorvastatin, Tramadol, Lisinopril, Zofran, Metformin, Gabapentin, Doxycycline, Chief Complaint twitching in left arm and face Disposition Transported No Lights/[place] Dispatch Reason Stroke/CVA Transported To [facility] Narrative Initially dispatched with P[facility] 45 for a stroke. Upon EMS arrival staff met crew at the door, stating that they would take the stretcher, load the patient, [facility] [address] [place] [address] EMS Patient Care Report Name: JOSE MCMULLEN Room #: REG DEEPTHI Carpio#: [id number] Admission: 12/17/19 Attend Phys: Discharge: Date of : 68 Report #: [id number] and return them to crew. Patient was brought out on the stretcher, showing no obvious signs of distress, CAOx4. Crew asked staff for report and they stated "she (the patient) can tell you" and walked back inside. Patient reports having very little movement on her left side due to a previous stroke. She stated this morning she had some twitching in her left arm/hand and face. Patient stated that she thought maybe she had a seizure. She reports remaining conscious throughout the incident. Patient stated that she was feeling better now but wished to be evaluated. She was loaded into the ambulance. Patient was transported to [facility] without incident. Full report was given to RN prior to signing this document. Initial Vitals @10:09P: 106,R: 20,BP: 109/88,GCS: 15,CO: 0,SpO2: 95,Revised Trauma: 12, @10:02P: 96,R: 20,BP: 174/95,Pain: 0/10,GCS: 15,Glucose: 97,SpO2: 97,Revised Trauma: 12, Assessments @10:00MENTAL:No Abnormalities,SKIN:No Abnormalities,HEENT:Head/Face: No Abnormalities,Eyes: No Abnormalities,Neck/Airway: No Abnormalities,LUNG SOUNDS:ABDOMEN:PELVIS//GI:EXTREMITIES:Left Arm: No Abnormalities,Right Arm: No Abnormalities,Left Leg: No Abnormalities,Right Leg: No Abnormalities,PULSE:NEURO:Weakness Left-Sided, Impression Acute Pain, not elsewhere classified Procedures @10:00ALS AssessmentResponse: UnchangedSucceeded Timeline 09:33,Call Received 09:33,Dispatch Notified 09:35,Dispatched 09:36,En Route 09:44,On Scene 10:00,At Patient 10:00,ALS Assessment,Response: UnchangedSucceeded, 10:02,BP: 174/95 M,PULSE: 96,RR: 20 R,SPO2: 97 Ox,ETCO2: ,B,PAIN: 0,GCS: 15, 10:04,Depart Scene 10:09,BP: 109/88 M,PULSE: 106,RR: 20 R,SPO2: 95 Ox,ETCO2: ,BG: ,PAIN: ,GCS: 15, 10:13,At Destination 10:25,Call Closed Disclaimer v1.1 Copyright 2020 [employer] [address] [address] EMS Patient Care Report Name: JOSE MCMULLEN Room #: REG DEEPTHI Carpio#: [id number] Admission: 12/17/19 Attend Phys: Discharge: Date of : 68 Report #: [id number] This EMS Care Summary contains data elements from the applicable legal record (which may be displayed differently). It is designed to provide pertinent information for the following purposes: continuity of care, clinical quality, and state data reporting. The complete legal record is available to ED staff and administrators of the receiving hospital in [employer] Patient Tracker. All data is provided "as is."
--- NOTE | ~2019-12-17 | EMS ---
[address] [address] EMS Patient Care Report Name: JOSE MCMULLEN Room #: REG DEEPTHI Carpio#: [id number] Admission: 12/17/19 Attend Phys: Discharge: Date of : 68 Report #: [id number] THIS REPORT FOR: //name// Report Transmitted: 12/17/2019 11:22 EMS Care Summary [place], [place]/[facility] Incident [id number] @ 12/17/2019 09:35 Incident Location [address] Patient JOSE PFEIFFER Female, 49 Years 1970 Patient Address [id number] [place], [place] [id number] Patient History Hypertension (HTN),Stroke/CVA,Hyperlipidemia,Neurological Condition - Other,Abdominal Aortic Aneurysm,Neuropathy, Patient Allergies No known allergies, Patient Medications Atorvastatin, Tramadol, Lisinopril, Zofran, Metformin, Gabapentin, Doxycycline, Chief Complaint twitching in left arm and face Disposition Transported No Lights/[place] Dispatch Reason Stroke/CVA Transported To [facility] Narrative Initially dispatched with Pumper 45 for a stroke. Upon EMS arrival staff met crew at the door, stating that they would take the stretcher, load the patient, [facility] [address] [place] [address] EMS Patient Care Report Name: JOSE MCMULLEN Room #: REG DEEPTHI Carpio#: [id number] Admission: 12/17/19 Attend Phys: Discharge: Date of : 68 Report #: [id number] and return them to crew. Patient was brought out on the stretcher, showing no obvious signs of distress, CAOx4. Crew asked staff for report and they stated "she (the patient) can tell you" and walked back inside. Patient reports having very little movement on her left side due to a previous stroke. She stated this morning she had some twitching in her left arm/hand and face. Patient stated that she thought maybe she had a seizure. She reports remaining conscious throughout the incident. Patient stated that she was feeling better now but wished to be evaluated. She was loaded into the ambulance. Patient was transported to [facility] without incident. Full report was given to RN prior to signing this document. Initial Vitals @10:09P: 106,R: 20,BP: 109/88,GCS: 15,CO: 0,SpO2: 95,Revised Trauma: 12, @10:02P: 96,R: 20,BP: 174/95,Pain: 0/10,GCS: 15,Glucose: 97,SpO2: 97,Revised Trauma: 12, Assessments @10:00MENTAL:No Abnormalities,SKIN:No Abnormalities,HEENT:Head/Face: No Abnormalities,Eyes: No Abnormalities,Neck/Airway: No Abnormalities,LUNG SOUNDS:ABDOMEN:PELVIS//GI:EXTREMITIES:Left Arm: No Abnormalities,Right Arm: No Abnormalities,Left Leg: No Abnormalities,Right Leg: No Abnormalities,PULSE:NEURO:Weakness Left-Sided, Impression Acute Pain, not elsewhere classified Procedures @10:00ALS AssessmentResponse: UnchangedSucceeded Timeline 09:33,Call Received 09:33,Dispatch Notified 09:35,Dispatched 09:36,En Route 09:44,On Scene 10:00,At Patient 10:00,ALS Assessment,Response: UnchangedSucceeded, 10:02,BP: 174/95 M,PULSE: 96,RR: 20 R,SPO2: 97 Ox,ETCO2: ,B,PAIN: 0,GCS: 15, 10:04,Depart Scene 10:09,BP: 109/88 M,PULSE: 106,RR: 20 R,SPO2: 95 Ox,ETCO2: ,BG: ,PAIN: ,GCS: 15, 10:13,At Destination 10:25,Call Closed Disclaimer v1.1 Copyright 2020 [employer] [address] [address] EMS Patient Care Report Name: JOSE MCMULLEN Room #: REG DEEPTHI Carpio#: [id number] Admission: 12/17/19 Attend Phys: Discharge: Date of : 68 Report #: [id number] This EMS Care Summary contains data elements from the applicable legal record (which may be displayed differently). It is designed to provide pertinent information for the following purposes: continuity of care, clinical quality, and state data reporting. The complete legal record is available to ED staff and administrators of the receiving hospital in [employer] Patient Tracker. All data is provided "as is."
[~2019-12-17 10:19] MED LIST changes: +BENADRYL25 MG PO; +CULTURELLE KID1 EAC1 PO; +DORYX MPC120 MG PO; +HYDRALAZINE 10M10 MG PO; +KRISTALOSE20 GM PO; +LANTUS SUBQ; +LINEZOLID600 MG PO; +LIPITOR 40 MG T40 M1 PO; +ZYVOX600 MG PO
[2019-12-17 11:04] LABS: ABSOLUTE NEUTROPHILS 5.5 thou/uL (1.4-8.2); EOSINOPHILS 4.2 % (0.0-3.0); HEMATOCRIT 38.8 % (37.0-47.0); HEMOGLOBIN 12.6 gm/dL (12.0-15.0); LYMPHOCYTES 22.7 % (24.0-44.0); MCH 28.4 pg (26.0-34.0); MCHC 32.4 g/dL (28.0-37.0); MCV 87.5 fL (80.0-100.0); MONOCYTES 6.8 % (1.0-8.0); PLATELET COUNT 272 thou/uL (150-400); POLYS 65.3 % (36.0-66.0); RBC 4.43 mil/uL (4.20-5.00); RDW 16.7 % (10.5-14.5); WBC 8.4 thou/uL (4.0-11.0)
[2019-12-17 11:23] LABS: CALCIUM 9.1 mg/dL (8.5-10.1); CREATININE 0.8 mg/dL (0.6-1.0); POTASSIUM 3.3 mmol/L (3.5-5.1)
[2019-12-17 11:30] LABS: ALBUMIN 3.1 g/dL (3.4-5.0); MAGNESIUM 1.1 mg/dL (1.8-2.4); TOTAL BILIRUBIN 0.3 mg/dL (0.2-1.0); TOTAL PROTEIN 8.9 g/dL (6.4-8.2)
[2019-12-17] MEDS ORDERED: COLACE100 MG PO (12:13)
[2019-12-17 14:00] VITALS: BP 135/82
== END 2019-12-17 14:00 ==
LOC: ER 10:19
PROVIDERS: Emergency Medicine
DX: G40.909 Epilepsy, unspecified, not intractable, without status epilepticus (principal); E83.42 Hypomagnesemia; G25.2 Other specified forms of tremor; I10 Essential (primary) hypertension; E78.5 Hyperlipidemia, unspecified; F17.210 Nicotine dependence, cigarettes, uncomplicated; Z79.899 Other long term (current) drug therapy; Z88.8 Allergy status to other drugs, medicaments and biological substances

== ENCOUNTER 2020-02-16 19:10 | Emergency (ER) | payer OTHER ==
[~2020-02-16] VITALS: Ht 160 cm; Wt 146.1 kg
--- NOTE | ~2020-02-16 | EMS ---
[facility] [address] [place] [address] EMS Patient Care Report Name: JOSE MCMULLEN Room #: REG DEEPTHI Carpio#: [id number] Admission: 02/16/20 Attend Phys: Discharge: Date of : 68 Report #: [id number] THIS REPORT FOR: //name// Report Transmitted: 02/16/2020 19:21 EMS Care Summary [facility] Incident [id number] @ 02/16/2020 18:17 Incident Location [address] [place] [address] Patient JOSE MCMULLEN-PFEIFFER Female, 49 Years 1970 Patient Address [address] [place] [address] Patient History Hypertension (HTN),Stroke/CVA,Morbid Obesity,Edema,Chronic Kidney Disease,Type 2 Diabetes,Cellulitis, Patient Allergies Hydrocodone, Patient Medications Unknown, Chief Complaint "She had a seizure." Disposition Transported No Lights/[place] Dispatch Reason Unconscious/Fainting Transported To [facility] Narrative History: Pt reports she was resting in bed watching TV when she suddenly felt a [facility] [address] [place] [address] EMS Patient Care Report Name: JOSE MCMULLEN Room #: REG DEEPTHI Carpio#: [id number] Admission: 02/16/20 Attend Phys: Discharge: Date of : 68 Report #: [id number] "cramping" sensation in her L hand. Pt reports that she subsequently "passed out" and woke up surrounded by facility staff members. Pt complained of feeling tired. Staff reports the pt experienced convulsion activity isolated to her L hand, followed by full-body convulsions lasting approximately 1-2 minutes. Staff denies any postictal period occurring. Pt reports she has a history of stroke with left-sided deficits from that stroke. Pt denies any recent illness, chest pain, shortness of breath, N/V/D, or headache. No other complaints noted at this time. Assessment: Pt was found in semi-barr's position in bed in the company of facility staff. Pt ABCs intact. Pt A&Ox4. Pt did not appear to be in any acute distress. See assessment tab for detailed physical exam findings and pertinent negatives. Treatment: Primary. VS. HPI. PMH. Physical exam. Pt moved via lateral sheet drag to EMS stretcher and secured in semi-barr's position. Pt moved via stretcher to ambulance. Pt placed on induction heating equipment setter. Transport: En route, continue with on-going assessment. Pt VS and condition remained stable throughout transport. Biocom to [place] ED. Destination: Pt was brought via stretcher to ED room 10. Pt moved via sheet drag to hospital bed. Report to attending RN. Patient signed. Care transferred. Initial Vitals @18:53P: 99,BP: 155/85,SpO2: 95,OH Suspected: false @PTAGlucose: 126, @18:30P: 101,R: 18,BP: 180/123,Pain: 0/10,GCS: 15,SpO2: 95,Revised Trauma: 12, Assessments @18:29MENTAL:Time Oriented,Person Oriented,Event Oriented,Place Oriented,SKIN:HEENT:Head/Face: Facial Droop,Neck/Airway: No Abnormalities,LUNG SOUNDS:Left Upper: No Abnormalities,Right Upper: No Abnormalities,Left Lower: No Abnormalities,Right Lower: No Abnormalities,ABDOMEN:Left Upper: No Abnormalities,Right Upper: No Abnormalities,Left Lower: No Abnormalities,Right Lower: No Abnormalities,PELVIS//GI:EXTREMITIES:Left Arm: Paralysis,Left Arm: Abnormal Sensation,Left Leg: Edema,Left Leg: Paralysis,Left Leg: Abnormal Sensation,Left Leg: Weakness,Left Arm: Weakness,Right Arm: No Abnormalities,Right Leg: No Abnormalities,PULSE:NEURO:Seizures,Facial Droop, Impression Syncope / Fainting Procedures @18:29ALS AssessmentResponse: [facility] [address] [place] [address] EMS Patient Care Report Name: JOSE MCMULLEN Room #: REG Dev.Hansel#: [id number] Admission: 02/16/20 Attend Phys: Discharge: Date of : 68 Report #: [id number] Timeline RACKING TECHNICIAN,BP: / M,PULSE: ,RR: R,SPO2: Ox,ETCO2: ,B,PAIN: ,GCS: , 18:14,Call Received 18:14,Psap Call 18:17,Dispatched 18:17,En Route 18:25,On Scene 18:28,At Patient 18:29,ALS Assessment,Response: UnchangedSucceeded, 18:30,BP: 180/123 M,PULSE: 101,RR: 18 R,SPO2: 95 Ox,ETCO2: ,BG: ,PAIN: 0,GCS: 15, 18:53,BP: 155/85 M,PULSE: 99,RR: R,SPO2: 95 Ox,ETCO2: ,BG: ,PAIN: ,GCS: , 18:54,Depart Scene 19:03,At Destination 19:31,Call Closed Disclaimer v1.1 Copyright 2020 [facility] This EMS Care Summary contains data elements from the applicable legal record (which may be displayed differently). It is designed to provide pertinent information for the following purposes: continuity of care, clinical quality, and state data reporting. The complete legal record is available to ED staff and administrators of the receiving hospital in [employer] Patient Tracker. All data is provided "as is."
[~2020-02-16 19:10] MED LIST changes: +COLACE100 MG PO
[2020-02-16 20:51] LABS: ABSOLUTE NEUTROPHILS 6.6 thou/uL (1.4-8.2); BASOPHILS 0.7 % (0.0-2.0); EOSINOPHILS 3.4 % (0.0-3.0); HEMATOCRIT 37.7 % (37.0-47.0); HEMOGLOBIN 12.4 gm/dL (12.0-15.0); LYMPHOCYTES 19.4 % (24.0-44.0); MCV 84.9 fL (80.0-100.0); MONOCYTES 6.9 % (1.0-8.0); PLATELET COUNT 257 thou/uL (150-400); POLYS 69.6 % (36.0-66.0); RBC 4.44 mil/uL (4.20-5.00); RDW 17.8 % (10.5-14.5); WBC 9.5 thou/uL (4.0-11.0)
[2020-02-16 20:59] LABS: ANION GAP 7 mmol/L (7-16); BUN 8 mg/dL (7-18); CALCIUM 9.1 mg/dL (8.5-10.1); CHLORIDE 102 mmol/L (98-107); CO2 31 mmol/L (21-32); CREATININE 0.9 mg/dL (0.6-1.0); GLUCOSE 107 mg/dL (74-106); POTASSIUM 3.9 mmol/L (3.5-5.1); SODIUM 140 mmol/L (136-145)
[2020-02-16 21:05] LABS: ALBUMIN 3.4 g/dL (3.4-5.0); DIRECT BILIRUBIN < 0.1 mg/dL (<0.1-0.2); SGOT 16 U/L (15-37); SGPT 26 U/L (30-65); TOTAL BILIRUBIN 0.4 mg/dL (0.2-1.0); TOTAL PROTEIN 9.3 g/dL (6.4-8.2)
[2020-02-16 21:24] LABS: AMP/METHAMP Negative (Negative); BARBITURATES Negative (Negative); BENZODIAZEPINES Negative (Negative); COCAINE Negative (Negative); METHADONE Negative (Negative); OPIATES POSITIVE (Negative); PCP Negative (Negative)
[2020-02-16 22:35] VITALS: BP 177/111
== END 2020-02-17 00:35 | disposition home or self-care (01) ==
LOC: ER 19:10
PROVIDERS: Emergency Medicine
DX: R56.9 Unspecified convulsions (principal); I10 Essential (primary) hypertension; F31.9 Bipolar disorder, unspecified; E78.5 Hyperlipidemia, unspecified; G62.9 Polyneuropathy, unspecified; F17.210 Nicotine dependence, cigarettes, uncomplicated; Z86.73 Personal history of transient ischemic attack (TIA), and cerebral infarction without residual deficits; Z86.711 Personal history of pulmonary embolism; Z86.718 Personal history of other venous thrombosis and embolism; Z79.899 Other long term (current) drug therapy; Z88.8 Allergy status to other drugs, medicaments and biological substances; Z88.6 Allergy status to analgesic agent

== ENCOUNTER 2020-04-30 19:36 | Inpatient (IN) | payer MEDICAID ==
[~2020-04-30] VITALS: Ht 162.6 cm; Wt 155.2 kg
--- NOTE | ~2020-04-30 | EMS ---
[address] [address] EMS Patient Care Report Name: JOSE MCMULLEN Room #: REG DEEPTHI Carpio#: [id number] Admission: 04/30/20 Attend Phys: Discharge: Date of : 68 Report #: [id number] THIS REPORT FOR: //name// Report Transmitted: 04/30/2020 21:12 EMS Care Summary [facility] Incident [id number] @ 04/30/2020 18:23 Incident Location [address] [place] [address] Patient JOSE MCMULLEN-PFEIFFER Female, 50 Years 1970 Patient Address [address] [place] [address] Patient History Hypertension (HTN),Stroke/CVA,Morbid Obesity,Bipolar II Disorder,Headache,Novel Coronavirus (COVID-19), Patient Allergies No known allergies, Patient Medications Claritin, Gabapentin, Melatonin, Lexapro, Hydrochlorothiazide (Hctz), Diphenhydramine, Januvia, Ibuprofen, Atorvastatin, Eliquis, Hydralazine, Colace, Lisinopril, Clonidine, Ventolin, Tramadol, Metformin, Protonix, Quetiapine, Oxycodone, Ondansetron, Chief Complaint Fever. Disposition Transported No Lights/[place] Dispatch Reason Sick Person Transported To [address] [address] EMS Patient Care Report Name: JOSE MCMULLEN Room #: REG [facility]#: [id number] Admission: 04/30/20 Attend Phys: Discharge: Date of : 68 Report #: [id number] Narrative [id number] arrived to find the pt sitting semi-barr in bed, in a group home facility room, in the presence of [facility] personnel and facility staff. [id number] noted that the pt was alert and interactive, and not experiencing any obvious anxiety, distress, or life threat. [id number] reported that facility staff reported to them an elevated Calcium level and wanted the pt seen at the hospital for a sepsis rule out. Facility staff reported that the pt had been experiencing a fever "around 101-102" yesterday that was successfully treated with Tylenol. Facility staff reported that the pt had been tested for COVID yesterday and it came back negative. Facility staff reported that the pt had COVID in March, but that the pt had no s/s of cough, shortness of breath, or chest pain. The pt reported that she was feeling tired and denied all other medical symptoms. The pt's condition remained stable and unchanged dur Initial Vitals @19:08P: 96,R: 16,BP: 118/56,Pain: 0/10,GCS: 15,Temp: 98.2F,SpO2: 98,Revised Trauma: 12,SD Suspected: false Assessments @18:50MENTAL:No Abnormalities,SKIN:Hot,HEENT:Head/Face: No Abnormalities,LUNG SOUNDS:General: No Abnormalities,ABDOMEN:General: No Abnormalities,PELVIS//GI:EXTREMITIES:PULSE:NEURO:No Abnormalities, Impression Fever Procedures @PTASurgical Mask on PatientResponse: Unchanged Timeline NYLON OPERATOR,Surgical Mask on Patient,Response: Unchanged 18:04,Call Received 18:04,Psap Call 18:23,Dispatched 18:25,En Route 18:37,On Scene 18:46,At Patient 19:08,BP: 118/56 M,PULSE: 96,RR: 16 R,SPO2: 98 Ox,ETCO2: ,BG: ,PAIN: 0,GCS: 15, 19:11,Depart Scene 19:29,At Destination 19:53,Call Closed [facility] [address] [place] [address] EMS Patient Care Report Name: JOSE MCMULLEN Room #: REG [facility].#: [id number] Admission: 04/30/20 Attend Phys: Discharge: Date of : 68 Report #: [id number] Disclaimer v1.1 Copyright 2020 [employer] This EMS Care Summary contains data elements from the applicable legal record (which may be displayed differently). It is designed to provide pertinent information for the following purposes: continuity of care, clinical quality, and state data reporting. The complete legal record is available to ED staff and administrators of the receiving hospital in [employer]'s Patient Tracker. All data is provided "as is."
[2020-04-30 19:41] VITALS: BP 119/53
[2020-04-30 21:09] LABS: ABSOLUTE NEUTROPHILS 10.9 thou/uL (1.4-8.2); BASOPHILS 0.9 % (0.0-2.0); EOSINOPHILS 0.6 % (0.0-3.0); HEMATOCRIT 38.3 % (37.0-47.0); HEMOGLOBIN 12.2 gm/dL (12.0-15.0); LYMPHOCYTES 16.1 % (24.0-44.0); MCH 28.2 pg (26.0-34.0); MCHC 31.9 g/dL (28.0-37.0); MCV 88.5 fL (80.0-100.0); MONOCYTES 5.5 % (1.0-8.0); PLATELET COUNT 247 thou/uL (150-400); POLYS 76.9 % (36.0-66.0); RBC 4.33 mil/uL (4.20-5.00); RDW 16.4 % (10.5-14.5); WBC 14.2 thou/uL (4.0-11.0)
[2020-04-30 21:10] LABS: CALCIUM 8.5 mg/dL (8.5-10.1); CREATININE 1.1 mg/dL (0.6-1.0); POTASSIUM 4.1 mmol/L (3.5-5.1)
[2020-04-30 21:17] LABS: ALBUMIN 2.6 g/dL (3.4-5.0); TOTAL BILIRUBIN 0.5 mg/dL (0.2-1.0); TOTAL PROTEIN 8.4 g/dL (6.4-8.2)
[2020-04-30 21:32] LABS: URINE BILIRUBIN NEGATIVE (Negative); URINE BLOOD 1+ (Negative); URINE CLARITY CLEAR; URINE COLOR YELLOW; URINE GLUCOSE-RANDOM* NEGATIVE (Negative); URINE KETONES NEGATIVE (Negative); URINE LEUKOCYTES-REFLEX TRACE (Negative); URINE NITRITE-REFLEX NEGATIVE (Negative); URINE PROTEIN (DIPSTICK) NEGATIVE (Negative); URINE SPECIFIC GRAVITY 1.025 (1.005-1.035); URINE UROBILINOGEN 0.2 E.U./dl (0.2-1.0)
[2020-04-30 21:47] LABS: SQUAMOUS 0-3 Few /LPF (0-3)
[2020-04-30 21:48] LABS: CASTS None Seen /LPF (None Seen); CRYSTALS None Seen /LPF (None Seen); URINE WBC-REFLEX 0-5 Rare /HPF (0-5)
[2020-04-30 21:49] LABS: BACTERIA-REFLEX 1-9 Few /HPF (None Seen); URINE RBC 3-10 Few /HPF (0-2)
--- NOTE | 2020-04-30 22:56 | NUR ---
PT MOVED FROM SOUTH SIDE TO ER ROOM 8
[2020-04-30] MEDS ORDERED: CEFTRIAXONE40 MG/M1 IM (23:36)
[2020-04-30] MEDS ORDERED: ALPRAZOLAM 0.50.5 M1 PO (23:38)
[2020-04-30] MEDS ORDERED: CLONIDINE HCL0.1 MG PO (23:39)
[2020-04-30] MEDS ORDERED: PROTONIX40 M2 PO (23:40)
[2020-04-30] MEDS ORDERED: LANTUS SOL100 UNIT/1 SUBQ (23:41)
[2020-04-30] MEDS ORDERED: CONSTULOSE10 GM/152 (23:42)
[2020-04-30] MEDS ORDERED: QUETIAPINE FUMA25 MG PO (23:43)
[2020-04-30] MEDS ORDERED: TORSEMIDE10 MG PO (23:44)
[2020-04-30] MEDS ORDERED: TRAMADOL 50 MG50 MG PO (23:44)
[2020-04-30] MEDS ORDERED: NYAMYC15 GM TOP (23:46)
[2020-04-30] MEDS ORDERED: OXYBUTYNIN 5 MG5 M2 PO (23:47)
[2020-04-30] MEDS ORDERED: HYDROCHLOROTH12.5 M2 PO (23:50)
[2020-04-30] MEDS ORDERED: NEURONTIN 400400 M1 PO (23:50)
[2020-04-30] MEDS ORDERED: MELATONIN5 MG PO (23:52)
[2020-04-30] MEDS ORDERED: NOVOLIN N100 UNIT/1 (23:54)
[2020-05-01] VITALS (8 sets, daily range): BP systolic 110–137; BP diastolic 62–88
--- NOTE | 2020-05-01 01:13 | NUR ---
HAND OFF TOOL SENT TO [facility] AT THIS TIME
[2020-05-01] MEDS ORDERED: NOVOLOG100 UNIT/1 SUBQ (05:30)
[2020-05-01 05:43] LABS: HEMATOCRIT 35.2 % (37.0-47.0); HEMOGLOBIN 11.3 gm/dL (12.0-15.0); MCH 28.5 pg (26.0-34.0); MCHC 32.1 g/dL (28.0-37.0); MCV 88.7 fL (80.0-100.0); RBC 3.97 mil/uL (4.20-5.00); RDW 16.3 % (10.5-14.5); WBC 12.1 thou/uL (4.0-11.0)
[2020-05-01 05:48] LABS: CALCIUM 8.4 mg/dL (8.5-10.1); CREATININE 1.1 mg/dL (0.6-1.0); POTASSIUM 3.3 mmol/L (3.5-5.1)
--- NOTE | 2020-05-01 07:27 | NUR ---
ER ADMIT. SEEN BY MORRIS THOMSON,HOSPITALIST AT BEDSIDE. ALL HOME MEDS RESUMED. VSS. NO S/S ACUTE DISTRESS NOTED OR REPORTED AT THIS TIME. CARE TRANSFERRED TO AM RN AT THIS TIME.
--- NOTE | 2020-05-01 15:17 | NUR ---
PT CARE ASSUMED AT 0700, PT ALERT AND ORIENTED X4, DENIES ANY CHEST PAIN, NAUSEA AND VOMITTING.PT COMPALINS OF GENERALIZED BODY PAIN. LEFT SIDED WEAKNESS DUE TO PREVIOUS CVA. PT IS ON 3L OF OXYGEN, NO SIGNS OF DISTRESS NOTED. FALL PRECAUTIONS IN PLACE. WILL CONTINUE TO MONITOR.
--- NOTE | 2020-05-01 15:38 | NUR ---
INITIAL ASSESSMENT: Received consult. MARIO reviewed chart and spoke with nursing and attending physician. Pt was admitted from [facility] due to pneumonia. Pt placed in Enhanced Isolation due to COVID-19. Pt with low grade fever and is requiring 2L of O2. Pt is on IV abx. ID consulted. Pt with hx of CVA with left sided weakness. MARIO placed call to pt's room. No answer. MAROI spoke with pt's , Phillip, via phone. Introduced role of SW. Pt's states that pt is in intermediate care and moved to [facility] when Centers closed last year. Plan is for pt to return to [facility] when medically stable. Pt may be ready for discharge tomorrow. MARIO faxed clinical info to the facility and spoke with liaison, Alice, who confirms they are able to accept pt back. Pt has [place] Medicaid. Info updated as pt was showing to be patient pay. MARIO is following to assist as needed with discharge planning.
--- NOTE | 2020-05-01 22:44 | NUR ---
PT RESTING IN BED WATCHING TV AND TALKING ON PHONE. PT HAS FEMALE EXT CATH, IV ANTIBIOTICS. LUNGS DIMINISHED. BS DECREASED, BLE EDEMA, L FOOT VERY SWOLLEN. L SIDE HEMIPARESIS. PT USES [employer] INTAKE TECHNICIAN TO USE BED CONTROLS. PT PROVIDED HS MEDS AND SNACK. PRN PROVIDED FOR C/O R HAND AND L FOOT PAIN. PT REPORTS PLAN ON DC IN AM.
[2020-05-02 03:35] VITALS: BP 116/66
[2020-05-02 05:47] LABS: ALBUMIN 2.2 g/dL (3.4-5.0); CALCIUM 8.2 mg/dL (8.5-10.1); POTASSIUM 3.4 mmol/L (3.5-5.1); TOTAL BILIRUBIN 0.3 mg/dL (0.2-1.0); TOTAL PROTEIN 7.1 g/dL (6.4-8.2)
[2020-05-02 06:05] LABS: ABSOLUTE NEUTROPHILS 4.6 thou/uL (1.4-8.2); BASOPHILS 0.2 % (0.0-2.0); EOSINOPHILS 4.1 % (0.0-3.0); HEMATOCRIT 34.5 % (37.0-47.0); HEMOGLOBIN 11.6 gm/dL (12.0-15.0); LYMPHOCYTES 22.5 % (24.0-44.0); MCH 29.9 pg (26.0-34.0); MCHC 33.6 g/dL (28.0-37.0); MCV 89.2 fL (80.0-100.0); MONOCYTES 8.7 % (1.0-8.0); PLATELET COUNT 196 thou/uL (150-400); POLYS 64.5 % (36.0-66.0); RBC 3.87 mil/uL (4.20-5.00); RDW 16.4 % (10.5-14.5); WBC 7.1 thou/uL (4.0-11.0)
--- NOTE | 2020-05-02 07:35 | NUR ---
LEFT MESSAGE ON DR OTT NUMBER TO REPORT BLOOD CULTURE RESULTS. AWAITING CALL BACK.
[2020-05-02 08:45] VITALS: BP 154/129
--- NOTE | 2020-05-02 10:10 | NUR ---
PATIENT ATE BREAKFAST WITH SET UP TOOK AM MEDS. IV FLUIDS INFUSING ORDERED.
--- NOTE | 2020-05-02 11:08 | NUR ---
DR LIMA HERE TO SEE PATIENT WANTS MIDLINE IV PLACE ORDER AND IV TEAM CALLED.
[2020-05-02 11:53] VITALS: BP 124/83
--- NOTE | 2020-05-02 14:40 | NUR ---
DR COOK HERE AND GAVE ORDER TO CONTINUE VANCO IV ORDERED. VANCO TROUGH WAS 11.
--- NOTE | 2020-05-02 15:00 | NUR ---
VAT CONSULTED FOR MIDLINE PLACEMENT. 4FR ML PLACED TO RIGHT UPPER CEPHALIC, TRIMMED AT 13CM, OCM EXTERNAL. PT TOLERATED WELL.
--- NOTE | 2020-05-02 15:38 | NUR ---
MARIO reviewed chart and spoke with nursing and attending physician. Pt remains in Enhanced Isolation due to COVID-19. Pt is afebrile and on 2L of O2. Pt is on IV abx. Awaiting cultures at this time. Pt may need to have a midline placed if IV abx are needed for discharge. Pt may be ready for discharge back to [facility] in 1-2 day. MARIO provided update to Alice at [facility], who confirms they are able to accept pt back when she is medically stable. Staff to contact the facility and ask for the post-acute unit to assist with coordination of discharge. MARIO spoke with pt's via phone to provide update and notify of discharge plan. Pt's spouse is aware and agreeable [facility] discharge plan. Finalized discharge orders/summary to be faxed to the facility when available. Chart will need to be copied. Pt's to be notified of discharge. MARIO is following and is available to assist as needed with discharge planning. [facility]
[2020-05-02 15:46] VITALS: BP 149/99
[2020-05-02 19:57] VITALS: BP 148/101
[2020-05-03 02:49] VITALS: BP 143/98
[2020-05-03 06:29] LABS: ABSOLUTE NEUTROPHILS 4.4 thou/uL (1.4-8.2); BASOPHILS 0.4 % (0.0-2.0); EOSINOPHILS 4.7 % (0.0-3.0); HEMATOCRIT 34.6 % (37.0-47.0); HEMOGLOBIN 10.8 gm/dL (12.0-15.0); LYMPHOCYTES 22.4 % (24.0-44.0); MCH 27.9 pg (26.0-34.0); MCHC 31.3 g/dL (28.0-37.0); MCV 89.2 fL (80.0-100.0); MONOCYTES 8.9 % (1.0-8.0); PLATELET COUNT 205 thou/uL (150-400); POLYS 63.6 % (36.0-66.0); RBC 3.88 mil/uL (4.20-5.00); WBC 6.8 thou/uL (4.0-11.0)
[2020-05-03 07:56] VITALS: BP 179/111
[2020-05-03 11:27] VITALS: BP 157/99
[2020-05-03] MEDS ORDERED: AUGMENTIN 875-1 EACH PO (12:14)
[2020-05-03 15:36] VITALS: BP 147/90
--- NOTE | 2020-05-03 16:57 | NUR ---
RN ASSUMED PT'S CARE AT 0700AM, PT KNOWS HIS NAME AND BIRTHDAY, PT CAN FOLLOW SOME COMMANDS, BUT PT IS IMPULSIVE AND HE GETS UP TO BATH ROOM BY HIMSELF, RN HAS REPORTED TO DR ABOUT PT'S IMPULSIVE, PT'S VS ARE STABLE, PT DOES NOT HAVE FEVER AND SOB AT THIS TIME.
--- NOTE | 2020-05-03 17:02 | NUR ---
RN ASSUMED PT'S CARE AT 0700AM, PT IS A&OX3, PT IS CONTINUING IV ABX, PT'S VS ARE STABLE, PT DENIES SOB AND PAIN BY THIS TIME, RN RECEIVED DR TO DC PT TO SNF ( [facility]), RN HAS GIVING REPORT AND SET UP TRANSPORTATION TO STRAP MAKING MACHINE OPERATOR ABOUT 1830PM TODAY.
--- NOTE | 2020-05-03 19:25 | NUR ---
PT DISCHARGED TO SNF AT ABOUT 1830PM.
== END 2020-05-03 18:30 | DRG 871 ==
LOC: ER 19:36 → EROBS 05-01 00:28 → 3W 05-01 00:28
PROVIDERS: Nurse Practitioner Family; Physician Assistant; Specialist; ADMIT Hospitalist; ATTEND Hospitalist
PROC: 05HD33Z Insertion of Infusion Device into Right Cephalic Vein, Percutaneous Approach (ICD-10-PCS; principal; 2020-05-02)
DX: A41.89 Other specified sepsis (principal); U07.1 COVID-19; J96.01 Acute respiratory failure with hypoxia; J12.89 Other viral pneumonia; E43 Unspecified severe protein-calorie malnutrition; N17.9 Acute kidney failure, unspecified; I69.354 Hemiplegia and hemiparesis following cerebral infarction affecting left non-dominant side; Z68.43 Body mass index [BMI] 50.0-59.9, adult; E66.01 Morbid (severe) obesity due to excess calories; I10 Essential (primary) hypertension; F41.9 Anxiety disorder, unspecified; E78.5 Hyperlipidemia, unspecified; G47.00 Insomnia, unspecified; F31.9 Bipolar disorder, unspecified; E11.42 Type 2 diabetes mellitus with diabetic polyneuropathy; Z86.711 Personal history of pulmonary embolism; Z86.718 Personal history of other venous thrombosis and embolism; Z88.8 Allergy status to other drugs, medicaments and biological substances
CPT/HCPCS: 10879; 27000

== ENCOUNTER 2020-05-21 18:10 | Inpatient (IN) | payer MEDICAID ==
[~2020-05-21] VITALS: Ht 162.6 cm; Wt 142.4 kg
--- NOTE | ~2020-05-21 | EMS ---
[facility] [address] [place] [address] EMS Patient Care Report Name: JOSE MCMULLEN Room #: REG DEEPTHI Carpio#: [id number] Admission: 05/21/20 Attend Phys: Discharge: Date of : 68 Report #: [id number] THIS REPORT FOR: //name// Report Transmitted: 05/21/2020 21:37 EMS Care Summary [facility] MED-ACT Incident [id number] @ 05/21/2020 17:22 Incident Location [address] [place] [address] Patient JOSE MCMULLEN-PFEIFFER Female, 50 Years 1970 Patient Address [address] [place] [address] Patient History Hypertension (HTN),Kidney/Renal Failure,Stroke/CVA,Hyperlipidemia,Gastro-Esophageal Reflux Disease (GERD),Morbid Obesity,Bipolar II Disorder,Depression,Abdominal Aortic Aneurysm,Neuropathy,Sepsis,Constipation,Headache,Type 2 Diabetes,Chronic Respiratory Failure,Insomnia,Novel Coronavirus (COVID-19), Patient Allergies No known allergies, Patient Medications Quetiapine, Eliquis, Tramadol, Novolog, Hydrochlorothiazide (Hctz), Atorvastatin, Hydralazine, Claritin, Melatonin, Lexapro, Januvia, Xanax, Protonix, Depakote, Hydrocodone, Metformin, Lisinopril, Ondansetron, Acetaminophen, Clonidine, Diphenhydramine, Torsemide, Colace, Ibuprofen, Oxycodone, Ventolin, Gabapentin, Chief Complaint Fever Disposition Transported No Lights/[place] Dispatch Reason [facility] [address] [place] [address] EMS Patient Care Report Name: JOSE MCMULLEN Room #: REG [facility].#: [id number] Admission: 05/21/20 Attend Phys: Discharge: Date of : 68 Report #: [id number] Sick Person Transported To [facility] Narrative A staff member at [facility] reports that he came in to work this afternoon and did his initial patient rounds around 15:00. Staff member stated they patient seemed "kind of lethargic and quiet" and he found the patient to have a low grade temperature of 99 degrees. Staff member stated that when he checked on the patient at 17:00, the patient's temperature was 103 degrees so he got orders to give the patient Tylenol, which the staff member stated he gave the patient at 17:20 just before calling 911. Staff member stated that the patient's confusion is not normal for her. The patient denied having any complaints (ie headache, dizziness, n/v/d, difficulty breathing,chest pain/pressure/discomfort, and abdominal pain). Staff reports that the patient was given a rapid COVID 19 test this afternoon and was negative. Staff also stated that the patient had COVID 19 in March 2020 and was hospitalized for 5 days at [facility] (intubated) for respiratory failure and sepsis in April 2020. Found this 50 y/o female patient supine in bed. Patient was a/o x 2. GCS 14. Patient's respirations were regular and non labored. Patient's SaO2 was 91% on room air. Patient's lung sounds were clear and equal bilaterally. Patient's skin was hot, dry and pale. Patient's radial pulse was strong and regular. Patient was moved via draw sheet to the stretcher and placed in a semi-fowlers position. Seat belts were secured and the patient was moved to the MICU. Patient's temperature was 102.3 degrees. Patient was placed on oxygen via nasal cannula at 4lpm. A surgical mask was placed on the patient and over the nasal cannula. Sinus rhythm on the monitor. No ST changes noted on the patient's 12 lead. Patient's bG was 161mg/dL via finger stick. Monitored the patient's vitals and ECG. A 20 ga IV saline lock was established in the patient's right hand. Upon arrival at [facility] ER, the patient was moved via draw sheet to an ER hallway bed across from ER #9. Report and paperwork TOT MARITA Mueller, at the patient's bedside. Initial Vitals @17:53P: 101,R: 18,BP: 125/77,Pain: 0/10,GCS: 14,SpO2: 99,Revised Trauma: 12, @18:02P: 101,R: 18,BP: 104/66,Pain: 0/10,GCS: 14,SpO2: 100,Revised Trauma: 12, @17:55P: 103,R: 18,Pain: 0/10,GCS: 14,SpO2: 100, @17:52P: 102,R: 18,Pain: 0/10,GCS: 14,Glucose: 161,SpO2: 98, @17:37P: 105,R: 18,BP: 117/76,Pain: 0/10,GCS: 14,Temp: 102.3F,SpO2: 91,Revised Trauma: 12, @17:53P: 102,R: 18,Pain: 0/10,GCS: 14,SpO2: 99,MS Suspected: false [facility] [address] [place] [address] EMS Patient Care Report Name: JOSE MCMULLEN Room #: DARIO Carpio#: [id number] Admission: 05/21/20 Attend Phys: Discharge: Date of : 68 Report #: [id number] Assessments @17:40MENTAL:Confused,Person Oriented,SKIN:Hot,Pale,HEENT:Eyes: Left Pupil: 5-mm,Eyes: Right Pupil: 5-mm,Head/Face: No Abnormalities,LUNG SOUNDS:ABDOMEN:PELVIS//GI:EXTREMITIES:PULSE:NEURO:Weakness Left-Sided,Weakness Right-Sided, Impression Fever Procedures @17:5312-Lead ECGResponse: UnchangedSucceeded@18:00Saline Lock 10cc (20 ga) Site: Hand-RightResponse: UnchangedSucceeded@17:40Oxygen FlowRate: 4 Device: CO2 Nasal Cannula Response: ImprovedSucceeded@17:41Surgical Mask on PatientResponse: Unchanged Timeline 17:20,Call Received 17:20,Psap Call 17:22,Dispatched 17:23,En Route 17:30,On Scene 17:34,At Patient 17:37,BP: 117/76 M,PULSE: 105,RR: 18 R,SPO2: 91 Ox,ETCO2: ,BG: ,PAIN: 0,GCS: 14, 17:40,Oxygen FlowRate: 4 Device: CO2 Nasal Cannula Response: ImprovedSucceeded, 17:41,Surgical Mask on Patient,Response: Unchanged 17:52,BP: / M,PULSE: 102,RR: 18 R,SPO2: 98 Ox,ETCO2: ,B,PAIN: 0,GCS: 14, 17:53,12-Lead ECG,Response: UnchangedSucceeded, 17:53,BP: / M,PULSE: 102,RR: 18 R,SPO2: 99 Ox,ETCO2: ,BG: ,PAIN: 0,GCS: 14, 17:53,BP: 125/77 M,PULSE: 101,RR: 18 R,SPO2: 99 Ox,ETCO2: ,BG: ,PAIN: 0,GCS: 14, 17:54,Depart Scene 17:55,BP: / M,PULSE: 103,RR: 18 R,SPO2: 100 Ox,ETCO2: ,BG: ,PAIN: 0,GCS: 14, 18:00,Saline Lock 10cc 20 ga Site: Hand-Right,Response: UnchangedSucceeded, 18:02,BP: 104/66 M,PULSE: 101,RR: 18 R,SPO2: 100 Ox,ETCO2: ,BG: ,PAIN: 0,GCS: 14, 18:02,At Destination 18:27,Call Closed Disclaimer v1.1 Copyright 2020 [employer] This EMS Care Summary contains data elements from the applicable legal record (which may be displayed differently). It is designed to provide pertinent information for the following purposes: continuity of care, clinical quality, and state data reporting. The complete legal record is available to ED staff [facility] [address] [place] [address] EMS Patient Care Report Name: JOSE MCMULLNE Room #: REG [facility].R.#: [id number] Admission: 05/21/20 Attend Phys: Discharge: Date of : 68 Report #: [id number] and administrators of the receiving hospital in [facility]'s Patient Tracker. All data is provided "as is."
[2020-05-21 18:10] VITALS: BP 156/101
[~2020-05-21 18:10] MED LIST changes: +ALPRAZOLAM 0.50.5 M1 PO; +AUGMENTIN 875-1 EACH PO; +CEFTRIAXONE40 MG/M1 IM; +CLONIDINE HCL0.1 MG PO; +CONSTULOSE10 GM/152; +HYDROCHLOROTH12.5 M2 PO; +LANTUS SOL100 UNIT/1 SUBQ; +MELATONIN5 MG PO; +NEURONTIN 400400 M1 PO; +NOVOLIN N100 UNIT/1; +NOVOLOG100 UNIT/1 SUBQ; +OXYBUTYNIN 5 MG5 M2 PO; +QUETIAPINE FUMA25 MG PO; +TORSEMIDE10 MG PO; +TRAMADOL 50 MG50 MG PO
[2020-05-21 19:02] LABS: ABSOLUTE NEUTROPHILS 13.7 thou/uL (1.4-8.2); BASOPHILS 0.2 % (0.0-2.0); EOSINOPHILS 0.1 % (0.0-3.0); HEMATOCRIT 35.4 % (37.0-47.0); HEMOGLOBIN 11.5 gm/dL (12.0-15.0); LYMPHOCYTES 11.5 % (24.0-44.0); MCH 28.4 pg (26.0-34.0); MCHC 32.4 g/dL (28.0-37.0); MCV 87.6 fL (80.0-100.0); PLATELET COUNT 227 thou/uL (150-400); POLYS 83.2 % (36.0-66.0); RBC 4.05 mil/uL (4.20-5.00); RDW 15.9 % (10.5-14.5); WBC 16.5 thou/uL (4.0-11.0)
[2020-05-21 19:14] LABS: CALCIUM 7.8 mg/dL (8.5-10.1); POTASSIUM 3.8 mmol/L (3.5-5.1)
[2020-05-21 19:20] LABS: ALBUMIN 2.3 g/dL (3.4-5.0); TOTAL BILIRUBIN 0.8 mg/dL (0.2-1.0)
[2020-05-22 05:46] LABS: HEMATOCRIT 36.4 % (37.0-47.0); HEMOGLOBIN 11.6 gm/dL (12.0-15.0); MCH 28.3 pg (26.0-34.0); MCHC 31.9 g/dL (28.0-37.0); MCV 88.5 fL (80.0-100.0); RBC 4.11 mil/uL (4.20-5.00); WBC 15.5 thou/uL (4.0-11.0)
[2020-05-22 06:22] LABS: CALCIUM 8.4 mg/dL (8.5-10.1); CREATININE 1.2 mg/dL (0.6-1.0); MAGNESIUM 1.3 mg/dL (1.8-2.4); POTASSIUM 3.9 mmol/L (3.5-5.1)
--- NOTE | 2020-05-22 21:44 | NUR ---
DR. DORSEY AT BEDSIDE TALKING TO PT.
[2020-05-23] VITALS (8 sets, daily range): BP systolic 118–147; BP diastolic 61–116
--- NOTE | 2020-05-23 18:13 | NUR ---
SPOKE WITH MAITE HERR, PT CLEARED FROM ISOLATION PRECAUTIONS
[2020-05-24 00:38] LABS: URINE BILIRUBIN NEGATIVE (Negative); URINE BLOOD NEGATIVE (Negative); URINE CLARITY CLEAR; URINE COLOR YELLOW; URINE GLUCOSE-RANDOM* NEGATIVE (Negative); URINE KETONES NEGATIVE (Negative); URINE LEUKOCYTES-REFLEX NEGATIVE (Negative); URINE NITRITE-REFLEX NEGATIVE (Negative); URINE PROTEIN (DIPSTICK) NEGATIVE (Negative); URINE UROBILINOGEN 0.2 E.U./dl (0.2-1.0)
[2020-05-24 04:07] VITALS: BP 178/99
--- NOTE | 2020-05-24 04:15 | NUR ---
PT NEW ADMIT YEASTERDAY. AO X 4. DENIES PAIN. SR ON THE MONITOR. CONSENTS SIGNED. PT EDUCATED CONVERTER SUPERVISOR LIGHT SYSTEM. ASSESSMENTS DOCUMENTED. ALVAREZ CATHETER INSERT FOR FREQUENT INCONTINENCE. WILL CONTINUE TO FOLLOW POC.
[2020-05-24 05:37] LABS: HEMATOCRIT 34.1 % (37.0-47.0); HEMOGLOBIN 10.9 gm/dL (12.0-15.0); MCH 28.6 pg (26.0-34.0); MCV 89.4 fL (80.0-100.0); RBC 3.81 mil/uL (4.20-5.00); RDW 16.1 % (10.5-14.5); WBC 10.5 thou/uL (4.0-11.0)
[2020-05-24 05:42] LABS: CALCIUM 8.8 mg/dL (8.5-10.1); CREATININE 0.8 mg/dL (0.6-1.0); POTASSIUM 3.7 mmol/L (3.5-5.1)
[2020-05-24 07:43] VITALS: BP 141/86
[2020-05-24 11:15] VITALS: BP 163/84
[2020-05-24 15:26] VITALS: BP 166/98
--- NOTE | 2020-05-24 16:18 | NUR ---
Case opened to follow for dc planning. Pt known to cm from previous admissions. She is a [facility] and functions at a w/c level. Spouse is her primary contact. DC land planner is faxing a clinical update to admissions at [facility]. Epitaxial Reactor Technician spoke with Alice in admissions and they are holding the pts bed and can accept when medically ready for her to return. Will follow.
--- NOTE | 2020-05-24 17:09 | NUR ---
FAXED CLINICAL UPDATE TO [facility] RECEIVED CONFIRMATION AND LEFT MSG WITH ALICE IN ADM.
[2020-05-24 19:58] VITALS: BP 147/73
[2020-05-24 23:45] VITALS: BP 165/87
[2020-05-25 03:03] VITALS: BP 163/82
[2020-05-25 04:08] LABS: HEMATOCRIT 34.9 % (37.0-47.0); HEMOGLOBIN 11.1 gm/dL (12.0-15.0); MCH 28.5 pg (26.0-34.0); MCHC 31.7 g/dL (28.0-37.0); RBC 3.88 mil/uL (4.20-5.00); RDW 16.1 % (10.5-14.5); WBC 8.2 thou/uL (4.0-11.0)
[2020-05-25 04:29] LABS: CALCIUM 9.3 mg/dL (8.5-10.1); CREATININE 0.8 mg/dL (0.6-1.0); POTASSIUM 3.5 mmol/L (3.5-5.1)
--- NOTE | 2020-05-25 04:38 | NUR ---
Assumed pt care at 1900. No sign of distress noted. Pt is alert and oriented. No sign of distress noted in pt. Denies pain. Fall precaution in place. Assessment completed and documented. Scheduled meds administered to pt. Tolerated PO intake. No acute events overnight. Continue to monitor. No further needs at this time.
--- NOTE | 2020-05-25 15:38 | NUR ---
Case discussed with the care team. DC time frame 1-2 days. Pt on iv atb for cellulitis and cult are pending. [facility] updated yesterday. They are holding the pt's bed and dc arrangements can be made by calling Alice at [phone] should she be ready to return over the weekend. A chart copy will be needed, orders will need to be faxed and report called at Alice's direction.
[2020-05-25 16:07] VITALS: BP 147/81
[2020-05-25 19:50] VITALS: BP 149/81
--- NOTE | 2020-05-25 19:56 | NUR ---
ASSUMED CARE OF PT AT SHIFT CHANGE. ASSESSMENTS CHARTED. MEDS GIVEN PER AUG. PT A&OX4, C/O PAIN TREATED WITH PO MEDS WITH PARTIAL RELIEF. NO DISTRES NOTED DURING SHIFT. POSSIBLE DC TOMORROW. WILL CONTINUE TO MONITOR AND FOLLOW POC.
--- NOTE | 2020-05-26 03:56 | NUR ---
Assumed pt care at 1900. Pt is alert and oriented. No sign of distress noted in pt. Pt is stable. Vital signs stable. Denies pain. Assessment completed and documented. Scheduled meds administered to pt. No acute events overnight. Pt pending discharge. Continue to monitor. No further needs at this time.
[2020-05-26 04:30] VITALS: BP 143/77
[2020-05-26 07:49] VITALS: BP 140/82
[2020-05-26 11:26] VITALS: BP 148/82
[2020-05-26 16:13] VITALS: BP 146/84
--- NOTE | 2020-05-26 16:21 | NUR ---
ASSUMMED PT CARE AT APPROXIMATELY 0700. PT A&O X4. PT DROWSY AT TIMES. ASSESSMENT CHARTED. FALL PRECAUTIONS IN PLACE. PT DENIES HAVING CHEST PAIN. PT DENIES HAVING SOB. PT STATED HER LLE HAD PAIN. PT RECEIVED ANALGESICS. PT STATED ANALGESICS HELPED RELIEVE PAIN. ELECTROLYTE PROTOCOL FOLLOWED. EDUCATED PT ABOUT POC. PT STATED UNDERSTANDING AND DENIED HAVING FURTHER CONCERNS. OT ORDER FOR LYPHEDEMA WRAPS CONSULTED. VITAL SIGNS STABLE. BLOOD SUGARS STABLE. PT DENIES HAVING FURTHER CONCERNS.
[2020-05-26 19:20] VITALS: BP 145/62
[2020-05-27 03:30] VITALS: BP 145/79
--- NOTE | 2020-05-27 03:44 | NUR ---
Assumed pt care at 1900. Pt is alert and oriented. No sign of distress noted in pt. Pt verbalizes pain. Assessment completed and documented. Pain med administered accordingly. Scheduled meds administered to pt. Tolerated PO intake. No acute events overnight. Pt is stable. No further needs at this time.
[2020-05-27 05:06] LABS: CALCIUM 9.5 mg/dL (8.5-10.1); CREATININE 0.7 mg/dL (0.6-1.0); POTASSIUM 3.5 mmol/L (3.5-5.1)
[2020-05-27 05:16] LABS: HEMATOCRIT 33.9 % (37.0-47.0); MCV 89.4 fL (80.0-100.0); RBC 3.79 mil/uL (4.20-5.00); WBC 8.6 thou/uL (4.0-11.0)
[2020-05-27 05:17] LABS: MCH 28.9 pg (26.0-34.0); MCHC 32.3 % (28.0-37.0); RDW 15.6 % (10.5-14.5)
[2020-05-27 08:50] VITALS: BP 147/86
[2020-05-27 11:40] VITALS: BP 155/99
[2020-05-27 16:31] VITALS: BP 137/81
--- NOTE | 2020-05-27 18:35 | NUR ---
PT DOZED OFF TO SLEEP A COUPLE TIMES TODAY, C/O PAIN IN LEFT FOOT, USED ACETAMENOPHEN, PT'S PAIN NOW DOWN TO ZERO. PT CLEANED AND TURNED REGULARLY, ABLE TO MOVE HER LEFT ARM WHEN ASKED TO, CURRENTLY HAVE IT PROPPED ON A PILLOW. AWAITING HER LEGS TO BE WRAPPED TOMORROW AND THEN PLANS TO TRANSFER BACK TO [facility].
[2020-05-27 19:56] VITALS: BP 155/92
--- NOTE | 2020-05-28 03:53 | NUR ---
Assumed pt care at 1900. Pt is alert and oriented. No sign of distress noted in pt. Pt is laying in bed. Fall precaution in place. Assessment completed and documented. Scheduled meds administered to pt. Tolerated PO intake. No acute events overnight, Pt pending discharge. No further needs at this time.
[2020-05-28 05:05] VITALS: BP 151/77
[2020-05-28 07:00] VITALS: BP 139/70
--- NOTE | 2020-05-28 10:22 | NUR ---
LEGS JUST WRAPPED AT THIS TIME BILATERALLY TOLERATED PROCEDURE WELL AND SAID THEY "FEEL BETTER WHEN WRAPPED". ATE ALL HER BREAKFAST AND IN GOOD SPIRITS OVERALL. POSSIBLE DISCHARGE ONCE WE ESTABLISH ANTIBIOTIOC THERAPY PER JOYCE ABEL FOR D/C TO REHAB FACILITY SHE CAME FROM. CHARISSAIES CP. CHARISSAIES SOB.
[2020-05-28 11:05] VITALS: BP 151/92
[2020-05-28] MEDS ORDERED: LINEZOLID600 MG PO (11:30)
--- NOTE | 2020-05-28 12:10 | NUR ---
CLEANED PT. POST BM (LARGE, SOFT FORMED STOOL) PRIOR. NEW GOING AND PARTIAL BED BATH PROVIDED WELL. TRANSFER BACK TO FACILITY ORDERS GIVEN FOR DISCHARGE WILL HAVE CASE MANAGEMENT HELP ARRANGE TRANSFER SHE WILL BEED A BARIATRIC ONE.
--- NOTE | 2020-05-28 16:29 | NUR ---
[T DISCHARGING TODAY BACK TO [facility] FAXED DC ORDERS/SUMMARY TO FACILITY SPOKE WITH MAU IN ADM SHE RECEIVED ORDERS THEY DO NOT HAVE COVID POSITIVE TRANSPORTATION TODAY SO TRANSPORT ARRANGED WITH [facility] FOR 1430 TODAY. LEFT MSG WITH PT'S JOSSELIN MA) OF DC AND TIME OF TRANSPORT AND MY NUMBER IF HE HAD ANY QUESTION. UNIT NOTIFIED AND CHART COPY PER US. RN TO CALL REPORT.
== END 2020-05-28 15:00 | DRG 871 ==
LOC: ER 18:10 → EROBS 22:52 → 2N 22:52 → EROBS 05-22 20:10 → 2N 05-23 18:48
PROVIDERS: Nurse Practitioner Family; Physician Assistant; ADMIT Hospitalist; ATTEND Hospitalist
DX: A41.9 Sepsis, unspecified organism (principal); E43 Unspecified severe protein-calorie malnutrition; N17.0 Acute kidney failure with tubular necrosis; J96.00 Acute respiratory failure, unspecified whether with hypoxia or hypercapnia; U07.1 COVID-19; J18.9 Pneumonia, unspecified organism; L03.116 Cellulitis of left lower limb; I69.354 Hemiplegia and hemiparesis following cerebral infarction affecting left non-dominant side; G93.40 Encephalopathy, unspecified; Z68.43 Body mass index [BMI] 50.0-59.9, adult; E78.5 Hyperlipidemia, unspecified; R65.20 Severe sepsis without septic shock; K21.9 Gastro-esophageal reflux disease without esophagitis; F32.9 Major depressive disorder, single episode, unspecified; G89.29 Other chronic pain; M54.9 Dorsalgia, unspecified; G47.00 Insomnia, unspecified; E66.01 Morbid (severe) obesity due to excess calories; E11.40 Type 2 diabetes mellitus with diabetic neuropathy, unspecified; F14.11 Cocaine abuse, in remission; I10 Essential (primary) hypertension; Z20.828 Contact with and (suspected) exposure to other viral communicable diseases; Z79.4 Long term (current) use of insulin; Z79.899 Other long term (current) drug therapy; Z88.5 Allergy status to narcotic agent; Z90.49 Acquired absence of other specified parts of digestive tract; Z88.8 Allergy status to other drugs, medicaments and biological substances; Z86.718 Personal history of other venous thrombosis and embolism; Z86.711 Personal history of pulmonary embolism; Z87.891 Personal history of nicotine dependence
CPT/HCPCS: 10081